=== PATIENT | male | born 1955 | race Caucasian/White ===

== ENCOUNTER → 2019-07-19 10:28 | Outpatient (BNVA) | payer MEDICARE, SELFPAY | PROVIDERS: Family Provider Nurse Practitioner; PCP Nurse Practitioner; Visit Provider Urology | DX: N13.8 Other obstructive and reflux uropathy (principal); N40.1 Benign prostatic hyperplasia with lower urinary tract symptoms; R97.20 Elevated prostate specific antigen [PSA]; N48.6 Induration penis plastica; N52.9 Male erectile dysfunction, unspecified | CPT/HCPCS: 81001; 84153 ==

== ENCOUNTER → 2019-11-21 12:06 | Outpatient (BNVA) | payer MEDICARE, SELFPAY | PROVIDERS: Family Provider Nurse Practitioner; PCP Nurse Practitioner; Visit Provider Nurse Practitioner Family | DX: U07.1 COVID-19 (principal) | CPT/HCPCS: 87635 ==

== ENCOUNTER → 2020-01-24 10:13 | Outpatient (BNVA) | payer MEDICARE, SELFPAY | PROVIDERS: Family Provider Nurse Practitioner; PCP Nurse Practitioner; Visit Provider Urology | DX: R97.20 Elevated prostate specific antigen [PSA] (principal); N13.8 Other obstructive and reflux uropathy; N40.1 Benign prostatic hyperplasia with lower urinary tract symptoms; N52.9 Male erectile dysfunction, unspecified | CPT/HCPCS: 81003; 84153 ==

== ENCOUNTER → 2020-07-31 14:00 | Outpatient (BNVA) | payer MEDICARE, SELFPAY | PROVIDERS: Family Provider Nurse Practitioner; PCP Nurse Practitioner; Visit Provider Urology | DX: R97.20 Elevated prostate specific antigen [PSA] (principal); N40.1 Benign prostatic hyperplasia with lower urinary tract symptoms; N13.8 Other obstructive and reflux uropathy | CPT/HCPCS: 81003; G0103 ==

== ENCOUNTER → 2021-01-29 09:50 | Outpatient (BNVA) | payer MEDICARE, SELFPAY | PROVIDERS: Family Provider Nurse Practitioner; PCP Nurse Practitioner; Visit Provider Nurse Practitioner Family | DX: R97.20 Elevated prostate specific antigen [PSA] (principal); N13.8 Other obstructive and reflux uropathy; N40.1 Benign prostatic hyperplasia with lower urinary tract symptoms | CPT/HCPCS: 81003; 84153 ==

== ENCOUNTER 2021-08-15 12:52 | Outpatient (CLI) | payer MEDICARE, SELFPAY | END 2021-08-15 12:53 | disposition home or self-care (01) | LOC: LAB 12:54 | PROVIDERS: PCP Nurse Practitioner; Visit Provider Urology | DX: R97.20 Elevated prostate specific antigen [PSA] (principal); Z80.42 Family history of malignant neoplasm of prostate; N40.1 Benign prostatic hyperplasia with lower urinary tract symptoms; N13.8 Other obstructive and reflux uropathy | CPT/HCPCS: 51798; 81003; 84153; 99213 ==

== ENCOUNTER → 2022-02-14 09:47 | Outpatient (BNVA) | payer MEDICARE, SELFPAY | PROVIDERS: PCP Nurse Practitioner; Visit Provider Urology | DX: R97.20 Elevated prostate specific antigen [PSA] (principal) | CPT/HCPCS: 84153 ==

== ENCOUNTER → 2022-02-27 09:28 | Outpatient (BNVA) | payer MEDICARE, SELFPAY | PROVIDERS: PCP Nurse Practitioner; Visit Provider Urology | DX: N13.8 Other obstructive and reflux uropathy (principal); N40.1 Benign prostatic hyperplasia with lower urinary tract symptoms; R97.20 Elevated prostate specific antigen [PSA]; N52.9 Male erectile dysfunction, unspecified; N48.6 Induration penis plastica | CPT/HCPCS: 51798; 81003; 99213 ==

== ENCOUNTER 2022-07-01 10:16 | Outpatient (CLI) | payer MEDICARE, SELFPAY ==
--- NOTE | 2022-07-01 10:30 | CT_ITS ---
WS: [id number] CT NECK TECHNIQUE: Contrast-enhanced CT of the neck with coronal and sagittal reformatted images. CLINICAL INFORMATION: R22.1 - Localized swelling, mass and lump, neck COMPARISON: None. DLP: 150.[address] scans at [facility] use at least one of these dose optimization techniques: automated e xposure control; mA and/or kV adjustment per patient size (includes targeted exams where dose is matc hed to clinical indication); or iterative reconstruction. FINDINGS: Some images degraded by motion. Parotid glands and submandibular glands are normal. . Normal parapharyngeal fat. Tiny LEFT thyroid n odule. Thyroid gland is otherwise normal. Lung apices are well aerated. Mastoid air cells well aerate d. Retention cysts or polyps LEFT maxillary sinus. Polypoid mucosal thickening in the paranasal sinus es. Masslike increased soft tissue mass involving the RIGHT palatine tonsil suspicious for neoplasm. Matt on degrades evaluation of this area. Suspicious area measures approximately 2.1 x 1.3 x 3.1 CM. Massl marixa RIGHT cervical lymphadenopathy with a suspicious heterogeneous enhancing enlarged RIGHT level 2 c ervical lymph node with central necrosis. This measures approximately 2.6 x 1.5 CM. Additional enhanc ing RIGHT cervical chain lymph nodes RIGHT level 3 measuring 10 to 11 mm. No definite visualized LEFT cervical chain pathological lymphadenopathy. Advanced spondylitic changes cervical spine. Disc osteophyte complexes at C5-C6 and C6-C7 moderate central canal stenosis C5-C6 e ccentric to the LEFT and moderate central canal stenosis C6-C7. CT/CT neck w con* [id number] IMPRESSION: 1. Masslike enhancement of the RIGHT palatine tonsil suspicious for tonsillar neoplasm. Recommend further evaluation with direct visualization. 2. Masslike RIGHT cervical lymphadenopathy highly suspicious for neoplasm/meta static disease measuring 2.6 x 1.5 x 3.1 cm in the area of palpable concern. Re commend PET/CT for further staging. 3. Additional smaller enhancing RIGHT cervical chain lymph nodes involving the RIGHT level 2, 3, and posterior triangle measuring up to 10 to 11 mm. 4. No visualized LEFT cervical lymphadenopathy. 5. Polypoid mucosal thickening in the peroneal sinuses. 6. Advanced spondylitic changes cervical spine.
[2022-07-01] MEDS: iohexol 350 mg/mL 500 mL Btl (per mL) IV ×2 (10:59→11:15)
--- NOTE | 2022-07-01 11:00 | CT_ITS ---
WS: [id number] CT CHEST TECHNIQUE: Contrast enhanced CT of the chest with coronal and sagittal reformatted images. CLINICAL INFORMATION: R91.8 - Other nonspecific abnormal finding of lung field COMPARISON: None. DLP: 183.[address] scans at [facility] use at least one of these dose optimization techniques: automated e xposure control; mA and/or kV adjustment per patient size (includes targeted exams where dose is matc hed to clinical indication); or iterative reconstruction. FINDINGS: Moderate chronic emphysematous changes. No acute pulmonary infiltrates. Slight bibasilar atelectasis. No focal pneumonia or pleural fluid. No suspicious pulmonary parenchymal opacities. No parenchymal o pacities to correspond to the radiograph findings. This is likely resolved in the interim. Normal caliber thoracic aorta. Normal descending thoracic aorta. Thyroid gland appears normal. No axi llary lymphadenopathy. Hypertrophic changes thoracic spine. Moderate spondylitic changes thoracic spine. No mediastinal or h ilar lymphadenopathy. No axillary lymphadenopathy. Adrenal glands are normal. Diffuse fatty infiltrat ion liver. Tiny esophageal hiatal hernia. Suggestion of cholelithiasis or sludge in gallbladder parti ally visualized. CT/CT chest w con* [id number] IMPRESSION: 1. No suspicious pulmonary parenchymal abnormalities today. Moderate chronic e mphysematous changes. 2. Slight bibasilar atelectasis. 3. No mediastinal or hilar lymphadenopathy. 4. Suggestion of cholelithiasis or sludge in the gallbladder. This can be foll owed up with ultrasound.
== END 2022-07-01 10:17 | disposition home or self-care (01) ==
PROVIDERS: PCP Nurse Practitioner; Visit Provider Nurse Practitioner Family
DX: R22.1 Localized swelling, mass and lump, neck (principal); R59.1 Generalized enlarged lymph nodes; R05.9 Cough, unspecified; J98.11 Atelectasis; R91.8 Other nonspecific abnormal finding of lung field
CPT/HCPCS: 70491; 71046; 71260; 80053; 80061; 84443; 85025; Q9967

== ENCOUNTER → 2022-07-04 10:37 | Outpatient (BNVA) | payer MEDICARE, SELFPAY | PROVIDERS: PCP Nurse Practitioner; Visit Provider Otolaryngology | DX: D49.0 Neoplasm of unspecified behavior of digestive system (principal); R22.1 Localized swelling, mass and lump, neck | CPT/HCPCS: 99205 ==

== ENCOUNTER 2022-07-10 09:34 | Day surgery (SDC) | payer MEDICARE, SELFPAY ==
[2022-07-09 10:24] VITALS: BMI 23.5
[2022-07-10] VITALS (16 sets, daily range): BP systolic 107–132; BP diastolic 65–82; PULSE 75–97; RESP 16–26; TEMP 36.4–36.7; O2SAT 92–98
--- NOTE | 2022-07-10 10:12 | W.PM.OPSUD ---
Surgery/Procedure H&P Update DATE OF PROCEDURE: July 10, 2022 DATE H&P PERFORMED: 07/04/22 H&P UPDATE INFORMATION: I have reviewed H&P completed within last 30 days, I have examined patient prior to procedure and No changes to prior documentation CHANGES TO PREVIOUS DOCUMENTATION: No changes PREOP DIAGNOSIS: Right tonsillar lesion/right neck mass PRIMARY INDICATION FOR PROCEDURE: Right tonsillar lesion and right neck mass PLANNED PROCEDURE: Operation Date: 07/10/22 11:15 Proposed Procedures p [id number] - bilateral tonsillectomy and excision of right sided neck mass R22.1, D49.0(Bilateral) - Paras Bentley MD s Excision Neck Mass/Lesion Removal Neck Mass/Lesion(Right) - Paras Bentley MD
--- NOTE | 2022-07-10 10:22 | ANES.PREANE2 ---
Pre-Anesthetic Assessment Height/Weight: Height 1.7 m Weight 68.039 kg O2 Del Method Room Air 07/10/22 10:12 Preop Diagnosis: Right tonsillar lesion/right neck mass Operation Date: 07/10/22 11:15 Proposed Procedures p [id number] - bilateral tonsillectomy and excision of right sided neck mass R22.1, D49.0(Bilateral) - Paras Bentley MD s Excision Neck Mass/Lesion Removal Neck Mass/Lesion(Right) - Paras Bentley MD Familial anesthetic complications: None Last intake: > 8hrs Social Tobacco and No alcohol Exam alert, oriented x 3, clear to auscultation bilaterally and regular rate & rhythm Airway Mallampati: Class III Dentition: other (multiple missing teeth) Comments: Comments: CT neck IIMPRESSION: ? 1.? Masslike enhancement of the RIGHT palatine tonsil suspicious for tonsillar neoplasm. Recommend further evaluation with direct visualization. 2.? Masslike RIGHT cervical lymphadenopathy highly suspicious for neoplasm/metastatic disease measuring 2.6 x 1.5 x 3.1 cm in the area of palpable concern. Recommend PET/CT for further staging. 3.? Additional smaller enhancing RIGHT cervical chain lymph nodes involving the RIGHT level 2, 3, and posterior triangle measuring up to 10 to 11 mm. 4.? No visualized LEFT cervical lymphadenopathy. 5.? Polypoid mucosal thickening in the peroneal sinuses. 6.? Advanced spondylitic changes cervical spine. ? Anesthetic Plan ASA status: 2 Anesthesia: General Risk of > 500 ml blood loss (7ml/kg in children): No Medications/Allergies Home Medications Medication Instructions Recorded Confirmed Last Taken Type cholecalciferol (vitamin D3) 50 50 mcg PO DAILY 07/19/19 07/09/22 07/08/22 History mcg (2,000 unit) capsule coenzyme [id number] E 100 mg-100 1 cap PO DAILY 07/19/19 07/09/22 07/08/22 History unit capsule tramadol 50 mg tablet 50 mg PO DAILY PRN Pain 01/29/21 07/09/22 Unknown History tamsulosin 0.4 mg capsule 0.8 mg PO DAILY #180 caps 02/27/22 07/09/22 07/09/22 18:00 Rx albuterol sulfate 90 mcg/actuation 2 puff inhalation QID PRN 06/17/22 07/09/22 07/09/22 22:30 Rx aerosol inhaler (Ventolin HFA) shortness of breath or wheezing #6.7 grams promethazine-DM 6.25 mg-15 mg/5 mL 5 - 10 ml PO Q6H PRN cough #240 mL 06/17/22 07/09/22 Unknown Rx oral syrup finasteride 5 mg tablet 5 mg PO DAILY 07/09/22 07/09/22 07/09/22 18:00 History Allergies Allergy/AdvReac Type Severity Reaction Status Date / Time codeine Allergy UNKNOWN Verified 07/04/22 11:05 hydrocodone Allergy UNKNOWN Verified 07/04/22 11:05 metronidazole [From Flagyl] Allergy UNKNOWN Verified 07/04/22 11:05 naproxen [From Naprosyn] Allergy UNKNOWN Verified 07/04/22 11:05 PFSH Anesthesia Medical History BPH with obstruction/lower urinary tract symptoms Degenerative spinal arthritis Diverticulosis Elevated PSA Erectile dysfunction History of basal cell carcinoma of skin Mixed hyperlipidemia Peyronie's disease Vitamin D deficiency Surgical History H/O radical excision of skin lesion FACE Hx of circumcision Family History Father , AT AGE 77 Cancer LUNG Mother CAD (coronary artery disease) Social History Smoking and tobacco status: current every day smoker Alcohol intake: never Substance/Drug Use: unknown Marital status: Current occupational status: retired Data Anesthesia Cardiac Studies: No Data to Display
[2022-07-10] MEDS: sodium chloride 0.9% 1,000 ML 30 ML IV (10:31)
[2022-07-10] MEDS: ceFAZolin 2,000 MG in sodium chloride 0.9% (plus) 50 ML 100 MG IV (12:09)
--- NOTE | 2022-07-10 13:32 | PM.OP ---
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 Post-op findings: Tonsil right side with ulceration and rockhard mass in lower two thirds. Multiple nodes right upper jugulodigastric region removed down to a clean great vessel carotid artery and jugular vein. No residual nodes visible that were suspicious. Procedure done: Right cervical lymphadenectomy and right tonsillectomy Implants: Quarter inch Miah drain to right neck Specimens removed/disposition: Right tonsil and multiple nodes from right neck Pathology: Same Surgeon: Paras Bentley MD Anesthesia: General and Local Estimated blood loss: 25 mL Complications: No complications encountered Findings: Patient has had right neck masses identified on CT scan along with a right tonsillar mass. Expected that these will proved to be squamous cell carcinoma originating in the right tonsil and spreading to the right neck lymph nodes. Patient will have his right tonsil resected for biopsy purposes and cervical lymphadenectomy performed. The procedure its risks and complications were explained in detail in the office setting. The risks included bleeding infection numbness scarring swelling bruising recurrence need for additional treatment as this is a diagnostic procedure. Further work-up will be necessary if malignancy is identified and PET scan and oncology referral will follow. Anesthetic risks were also discussed. Nerves in the area were discussed as well as far as being at risk. These were the marginal mandibular branch of the facial nerve and the hypoglossal nerve the vagus nerve and the spinal accessory nerve. With all of these things understood informed consent was granted and witnessed. Brief History: 67-year-old male patient with a couple of month history of right neck mass that is in enlarging in size and becoming tender. Patient found on CT scan to have neck masses on the right side and a right tonsillar mass. This was confirmed on office examination. Patient being brought to the operating room at this time to undergo excision of the right neck masses and tonsillectomy. Procedure: Description of procedure: The patient was placed on the operating table in the supine position. Adequate general endotracheal tube anesthesia was obtained. The patient was repositioned into a semirecumbent position with the right neck exposed. The area was prepped and marked the site was noted. 1.7 mL of 2% Xylocaine with 1-100,000 epinephrine was used to infiltrate the skin. The patient was then prepped and draped in usual fashion. A timeout was accomplished identifying the patient date of plan procedure allergies fire risk and medications given. With all in agreement the procedure continued. The patient was given Ancef IV for prophylaxis. The neck incision was created with the cut mode of the Bovie with a needle tip. It was carried down to the subcutaneous fat layer after which the coagulation mode of the Bovie was used to dissected further down down to the platysma muscle. Then dissection was carried out elevating and cutting appropriately. This was carried down to the sternocleidomastoid muscle. The fascia was incised over the anterior aspect of the sternocleidomastoid muscle and then elevated over its anterior edge down to the neck mass in question which was small for the lobulated lymph node and multiple nodes present. All that was visible in all that appeared abnormal were resected. This was forwarded to the pathologist for frozen section diagnosis. While that was pending hemostasis was obtained with bipolar cautery. Rinsing with sterile water was accomplished several times. A Miah drain quarter-inch was placed to the depths of the surgical site. This was sutured to the neck with a 4-0 chromic suture. Then the platysma level layer was closed with interrupted 4-0 chromic. The subcutaneous layer was then closed with interrupted 4-0 chromic suture. Then the skin was closed with skin marie. The neck was cleansed and a sterile lap pad was placed over it. Frozen section returned as metastatic squamous cell carcinoma. The table was then rotated 90 degrees. His head was dropped 15 degrees to the horizontal. With the eyes still taped shut and head drape was applied. A Samaria Ashwin mouthgag was inserted over the endotracheal tube and tongue ensuring that the upper incisors were in the guard. This was then opened and suspended from a rolled blanket on his chest. A red rubber catheter was inserted in the left nares and used to elevate the palate. Left tonsil was found to be normal and almost atrophic. Nasopharynx was clear. The right tonsil was palpated in the superior aspect. Normal but the lower two thirds was rockhard and obviously had the ulcerative component extending to a hard mass. The tonsil was removed with the foot pedal Bovie using cut and coagulation modes to dissected tonsil from its bed from a superior to inferior direction. Hemostasis was obtained with the cautery. Several larger vessels were clamped and cauterized with the clamp in place. After removal of the mass this was also forwarded to pathology but for permanent section only. The tonsil bed was checked for any obvious or gross tumor. None was seen. Bleeding was controlled at all sites. Area was irrigated with sterile water. The red rubber catheter was released. No bleeding was seen. The mouthgag was released and the tongue and neck were massaged. No bleeding was seen when it was reopened. The area was suctioned clean. The hypopharynx was suctioned. The mouthgag was released and removed. The patient's head was returned to the upright position. Head drape and tape were removed. The sterile lap that was still covering the right neck incision was removed. Neosporin ointment was applied over the incision. Fluffs were placed and then 2 Kerlix rolls were wrapped around the neck with proper tightness. That to apply a pressure dressing. At this point the patient was returned to anesthesia for wake-up and extubation. He tolerated the procedure well had an estimated blood loss of 25 mL and arrived in recovery in stable condition.
[2022-07-10] MEDS: HYDROmorphone 1 mg/mL INJ 1 mL 0.5 MG IVP (14:20)
--- NOTE | 2022-07-10 14:34 | SUR.OPER ---
1.7ml of 2% lidocaine with epi injected into the right neck.
--- NOTE | 2022-07-10 16:52 | SUR.PHASEII ---
16:40 PT ABLE TO SWALLOW SECRETIONS. NECK DRESSING CLEAN AND INTACT.
--- NOTE | 2022-07-10 17:07 | ANE.PACU2 ---
Inpatient post-anesthesia follow up: Airway intact: Yes Vital signs: Temperature 97.9 F Pulse Rate 81 Respiratory Rate 16 Blood Pressure 108/69 Pulse Oximetry 92 Oxygen Delivery Me thod Room Air Oxygen Flow Rate 2 Fraction of Inspir ed Oxygen Hydration adequate: Yes Nausea and vomiting: No Pain level: 1 Mental status: Baseline
[2022-07-14 11:14] LABS: Lymphoma Profile (BBPL) See Report
== END 2022-07-10 16:40 | disposition home or self-care (01) ==
PROVIDERS: PCP Nurse Practitioner; Visit Provider Otolaryngology
PROC: (CPT 38510; 2022-07-10 11:05)
PROC: (CPT 38510; 2022-07-10 11:05)
DX: C09.9 Malignant neoplasm of tonsil, unspecified (principal); C77.0 Secondary and unspecified malignant neoplasm of lymph nodes of head, face and neck; E78.2 Mixed hyperlipidemia; F17.210 Nicotine dependence, cigarettes, uncomplicated
CPT/HCPCS: 38510; 42826; 88184; 88185; 88304; 88307; 88331; 88342; J0690; J1100; J1170; J2250; J2370; J2405; J2710; J3010; J3490; J7030

== ENCOUNTER 2022-07-12 10:34 | Observation (INO) | payer MEDICARE, SELFPAY ==
[2022-07-12] VITALS (19 sets, daily range): BP systolic 117–153; BP diastolic 66–97; PULSE 60–100; RESP 14–22; TEMP 36.4–36.9; O2SAT 89–93; BMI 21.2
--- NOTE | 2022-07-12 11:23 | XRR_ITS ---
PROCEDURE INFORMATION: Exam: XR Chest Exam date and time: 07/12/2022 11:34 AM Age: 67 years old Clinical indication: Shortness of breath; Prior surgery; Surgery date: Post-operative (0-2 days); Surgery type: Cervical 2 days ago; Additional info: SOB TECHNIQUE: Imaging protocol: Radiologic exam of the chest. Views: 1 view. COMPARISON: CT chest w con* [id number] 07/01/2022 10:59 AM FINDINGS: Lungs: Mild left basilar airspace opacity. Pleural spaces: Unremarkable. No pleural effusion. No pneumothorax. Heart/Mediastinum: Unremarkable. No cardiomegaly. Bones/joints: Unremarkable. XR/XR chest 1V portable [id number] IMPRESSION: Mild left basilar airspace opacity may reflect atelectasis versus aspiration or pneumonia.
--- NOTE | 2022-07-12 11:37 | W.ED.SOB ---
HPI - SOB/Dyspnea General: Chief Complaint: Shortness of Breath/Dyspnea Stated Complaint: SOB post surgery 07/10 Time Seen by Provider: 07/12/22 11:02 History of Present Illness: HPI Narrative: 67-year-old male presents emerged department his present chief complaint shortness of breath or trouble swallowing sore throat. Patient is status post right-sided tonsillectomy lymph node excision the rest of the neck for concerning findings for underlying cancer he reports this was done on . He reports uneventful postoperative. He reports trouble swallowing his medication including his antibiotics and she developed some mild shortness of breath after taking it patient does not report any coughing any blood he reports significant sore throat reports no difficulty breathing patient also endorses significant right-sided lateral neck pain. Patient does not recall any recent fevers or chills reporting no other associated symptoms. Associated symptoms: Deny abdominal pain, chest pain, extremity pain, fever(s), nausea, palpitations or vomiting Review of Systems General: Reports: 10 or more systems reviewed and unremarkable except in HPI and below Const: Denies: fever(s), chills, fatigue or malaise Eyes: Denies: change in vision or blurry vision ENMT: Reports: throat pain, odynophagia, hoarseness and dry mouth Card: Denies: chest pain or palpitations Resp: Reports: dyspnea and non-productive cough; Denies: wheezing GI: Denies: abdominal pain, nausea or vomiting : Denies: flank pain Musc: Denies: extremity pain or extremity swelling Skin/Breast: Denies: rash or pruritus Neuro: Denies: headache(s) Psych: Denies: anxiety or depression Jeremy/Lymph: Denies: easy bleeding All/Imm: Denies: urticaria, throat swelling or facial swelling PFSH ED PFSH: Medical History BPH with obstruction/lower urinary tract symptoms Degenerative spinal arthritis Diverticulosis Elevated PSA Erectile dysfunction History of basal cell carcinoma of skin Mixed hyperlipidemia Peyronie's disease Vitamin D deficiency Surgical History H/O radical excision of skin lesion FACE Hx of circumcision Family History Father , AT AGE 77 Cancer LUNG Mother CAD (coronary artery disease) Social History Smoking and tobacco status: current every day smoker Alcohol intake: never Substance/Drug Use: unknown Marital status: Current occupational status: retired Physical Exam Narrative: EXAM NARRATIVE: Patient appears nontoxic afebrile appears in no acute respiratory distress Const: COMMON NORMALS: no acute distress, patient oriented x3 and healthy appearing HENMT: OTHER: Eschar noted to the right tonsil surgical wrap appreciated to the neck with no obvious hematoma. No dehiscence of the overlying marie apparent equal breath sounds appreciate bilaterally no obvious wheezing crackles rales or rhonchi noted no stridor apparent Eye: COMMON NORMALS: Equal, round and reactive pupils present and EOMs intact bilaterally PUPIL: Yes Equal, round and reactive pupils present Lymph: LYMPHATIC: no lymphadenopathy noted Chest: COMMONS NORMALS: normal inspection of the chest and normal palpation of entire chest wall Cardio: COMMON NORMALS: regular rate and regular rhythm RATE: regular rate RHYTHM: regular rhythm GI: COMMON NORMALS: Normal to inspection, nondistended, normoactive bowel sounds present, Soft to palpation and non-tender INSPECTION: Yes normal to inspection PALPATION: Yes Soft to palpation : COMMON NORMALS: Yes no CVA tenderness BLADDER/KIDNEY EXAM: Yes no CVA tenderness Back/Pelvis: COMMON NORMALS: no CVA tenderness Extremity: COMMON NORMALS: normal to inspection and full ROM Neuro: COMMON NORMALS: patient oriented x3, CN's II-XII intact bilaterally, moves all extremities and no focal motor deficits Psych: COMMON NORMALS: mental status grossly normal, Normal thought process present, cooperative and normal affect THOUGHT PROCESS: Normal thought process present Skin: COMMON NORMALS: no rashes or lesions noted GENERAL SKIN EXAM: no rashes or lesions noted Course Vital Signs: Vital signs: Vital Signs Temperature 97.6 F 07/12/22 10:41 Pulse Rate 85 07/12/22 10:41 Respiratory Rate 18 07/12/22 13:21 Blood Pressure 117/93 07/12/22 13:21 Pulse Oximetry 91 07/12/22 13:21 Oxygen Delivery Me thod Room Air 07/12/22 13:21 MDM - SOB/Dyspnea Medical Decision Making Due to the patient's symptoms and condition Concern dehydration is prominent patient will also be provided a dose of IV Decadron on exam the patient does have a eschar is nonbleeding with mild tonsillomegaly on the right no obvious stridor apparent airway compromise appreciated underlying concerns of dehydration is prominent will be obtaining a chest x-ray CT imaging of the neck with IV contrast and I will continue to follow. Patient was found to be considerable amount of supraglottic edema airway compression as noted by radiology discussed patient's case with Dr. Bentley patient's ENT recommends admission to Dr. Sebastian hospitalist to the ICU patient be kept on antibiotics and steroids the patient is currently guarding his airway. No obvious acute airway compromise. Lab Data 07/12/22 12:21 07/12/22 12:21 Labs/Radiology: Radiology Impressions Chest X-Ray 07/12/22 11:23 IMPRESSION: Mild left basilar airspace opacity may reflect atelectasis versus aspiration or pneumonia. Neck CT 07/12/22 12:59 IMPRESSION: Combination of supraglottic edema and perivertebral edema contributing to supraglottic airway narrowing to 7 x 3 mm. No abnormal drainable fluid collection. THIS REPORT CONTAINS FINDINGS THAT MAY BE CRITICAL TO PATIENT CARE. The findings were verbally communicated via telephone conference with GAUDENCIO GARCIA at 1:40 PM CDT on 07/12/2022. The findings were acknowledged and understood. Chest CT 07/12/22 13:02 IMPRESSION: 1. Mild mediastinal lymphadenopathy. 2. Mild emphysema. 3. Cholelithiasis without definite gallbladder wall thickening. 4. Mild splenomegaly. 5. Please see dedicated CT of the neck for associated findings. COMMENTS: In the absence of a history or active diagnosis of lung cancer, it is recommended that this patient with emphysema be evaluated for enrollment in a low dose CT lung cancer screening program. Laboratory Results WBC 13.1 10^3/uL (4.0-10.0) H 07/12/22 12:21 RBC 4.71 10^6/uL (4.1-5.3) 07/12/22 12:21 Hgb 13.6 g/dL (11.7-16.6) 07/12/22 12:21 Hct 42.5 % (42.0-52.0) 07/12/22 12:21 MCV 90.2 fl (80-94) 07/12/22 12:21 MCH 28.9 pg (28.0-34.0) 07/12/22 12:21 MCHC 32.0 g/dL (30.0-36.0) 07/12/22 12:21 RDW 13.8 % (12.1-15.1) 07/12/22 12:21 Plt Count 242 10^3/cmm (130-400) 07/12/22 12:21 MPV 9.5 fL (7.4-10.4) 07/12/22 12:21 Neut % (Auto) 71.4 % 07/12/22 12:21 Lymph % (Auto) 17.1 % 07/12/22 12:21 Piute % (Auto) 8.8 % 07/12/22 12:21 Eos % (Auto) 1.9 % 07/12/22 12:21 Baso % (Auto) 0.5 % 07/12/22 12:21 Neut # (Auto) 9.37 10^3/uL (1.8-7.7) H 07/12/22 12:21 Lymph # (Auto) 2.3 10^3/uL (0.8-4.8) 07/12/22 12:21 Piute # (Auto) 1.2 10^3/uL (0.2-0.9) H 07/12/22 12:21 Eos # (Auto) 0.3 10^3/uL (0.0-0.8) 07/12/22 12:21 Baso # (Auto) 0.1 10^3/uL (0.0-0.1) 07/12/22 12:21 Nucleated RBC % (auto) 0 % 07/12/22 12:21 Nucleated RBCs # 0.0 /100WBC 07/12/22 12:21 Sodium 137 mmol/L (136-145) 07/12/22 12:21 Potassium 3.8 mmol/L (3.5-5.1) 07/12/22 12:21 Chloride 101 mmol/L (98-107) 07/12/22 12:21 Carbon Dioxide 23 mmol/L (22-29) 07/12/22 12:21 Anion Gap 16.8 (5-19) 07/12/22 12:21 BUN 17 mg/dL (8-23) 07/12/22 12:21 Creatinine 0.6 mg/dL (0.7-1.2) L 07/12/22 12:21 GFR Calculation 134.0 mL/min (90-130) H 07/12/22 12:21 Glucose 94 mg/dL (65-115) 07/12/22 12:21 Calculated Osmolality 285 mOsm/kg (285-295) 07/12/22 12:21 Lactic Acid 1.1 mmol/L (0.5-2.2) 07/12/22 12:21 Calcium 8.6 mg/dL (8.5-10.5) 07/12/22 12:21 Total Bilirubin 1.9 mg/dL (0.15-1.2) H 07/12/22 12:21 AST 17 U/L (0-40) 07/12/22 12:21 ALT 11 U/L (0-41) 07/12/22 12:21 Alkaline Phosphatase 87 U/L (40-130) 07/12/22 12:21 Troponin T Baseline 10 ng/L (0-15) 07/12/22 12:21 Troponin T 120 Minute 11.24 ng/L (0-15) 07/12/22 14:26 C-Reactive Protein 46.1 mg/L (0.0-4.9) H 07/12/22 12:21 NT-Pro-B Natriuret Pep 284 pg/mL (0-125) H 07/12/22 12:21 Total Protein 7.0 g/dL (6.6-8.7) 07/12/22 12:21 Albumin 3.8 g/dL (3.5-5.2) 07/12/22 12:21 Globulin 3.2 g/dL (1.3-4.6) 07/12/22 12:21 Discharge Plan Discharge Admit Provider: Candido Sebastian Clinical Impression: Supraglottic edema Condition: Stable Coding Level of Care Code ED Plasma Table Operator for Zaheer Ha
[2022-07-12] MEDS: benzonatate 100 mg Capsule 200 MG PO (12:10)
[2022-07-12] MEDS: sodium chloride 0.9% 1,000 ML 999 ML IV (12:17)
--- NOTE | 2022-07-12 12:20 | ECG_ITS ---
[facility] Test Date: 2022-07-12 Pat Name: Jin Bateman Department: Room: Gender: Male Dining Room Supervisor: : 1955 Requested By: Dago Garcia Order Number: [id number] Carley MD: Gopi Mera M.D. Measurements Intervals Collins Rate: 75 P: 80 WY: 188 QRS: 62 QRSD: 86 T: 61 QT: 346 QTc: 388 Interpretive Statements SINUS RHYTHM WITH MARKED SINUS ARRHYTHMIA No previous ECG available for comparison Electronically Signed On 07-13-2022 10:17:55 CDT by Gopi Mera M.D. [id number]
[2022-07-12 12:36] LABS: Basophils # 0.1 10^3/uL (0.0-0.1); Basophils % 0.5 %; Eosinophils # 0.3 10^3/uL (0.0-0.8); Eosinophils % 1.9 %; Hematocrit 42.5 % (42.0-52.0); Hemoglobin 13.6 g/dL (11.7-16.6); Lymphocytes # 2.3 10^3/uL (0.8-4.8); Lymphocytes % 17.1 %; Mean Corpuscular Hemoglobin 28.9 pg (28.0-34.0); Mean Corpuscular Volume 90.2 fl (80-94); Mean Platelet Volume 9.5 fL (7.4-10.4); Monocytes # 1.2 10^3/uL (0.2-0.9); Monocytes % 8.8 %; Neutrophils # 9.37 10^3/uL (1.8-7.7); Neutrophils % 71.4 %; Nucleated Red Blood Cells % 0 %; Platelet Count 242 10^3/cmm (130-400); Red Blood Count 4.71 10^6/uL (4.1-5.3); Red Cell Distribution Width 13.8 % (12.1-15.1); White Blood Count 13.1 10^3/uL (4.0-10.0)
[2022-07-12 12:56] LABS: Lactic Sepsis W/Reflex 1.1 mmol/L (0.5-2.2)
[2022-07-12 12:57] LABS: Troponin(5th) Baseline 10 ng/L (0-15)
--- NOTE | 2022-07-12 12:59 | CTR_ITS ---
PROCEDURE INFORMATION: Exam: CT Neck With Contrast Exam date and time: 07/12/2022 1:15 PM Age: 67 years old Clinical indication: SOB; right tonsillar cancer. Right tonsillectomy and right neck lymph node dissection 2 days ago. TECHNIQUE: Imaging protocol: Computed tomography of the neck with contrast. Radiation optimization: All CT scans at this facility use at least one of these dose optimization techniques: automated exposure control; mA and/or kV adjustment per patient size (includes targeted exams where dose is matched to clinical indication); or iterative reconstruction. Contrast material: OMNI 350; Contrast volume: 40 ml; Contrast route: INTRAVENOUS (IV); REPORTING DATA: Count of CT and Cardiac NM exams in prior 12 months: This patient has received 2 known CTs and 0 known cardiac nuclear medicine studies in the 12 months prior to the current study. COMPARISON: CT neck w con* [id number] 07/01/2022 10:54 AM RADIATION DOSE METRICS: Total DLP (mGy-cm): 211.71 FINDINGS: Tubes, catheters and devices: Postsurgical drain placed via the incision terminates adjacent to the anterior wall of the internal jugular vein at C2-C3 level. Pharynx: Right tonsillar tumor has been removed. There is small amount of fluid and air within the resection cavity of right tonsil. There is persistent 0.8 cm hypodensity in the normal size left tonsil. Larynx: There is very slight edema of the epiglottis measuring 5 mm in thickness versus 3 mm on the preoperative exam. There is significant supraglottic edema along the right lateral and posterior wall and within the right aryepiglottic fold contributing to narrowing of the airway which is now measuring 7 mm in wibr-sf-tagg diameter and 3 mm in anterior-posterior diameter (series 4, image [id number]). Collapse of bilateral piriform sinuses. Unremarkable local cords. Prevertebral and retropharyngeal spaces: Diffuse mild soft tissue thickening in the retropharyngeal area between C2 and C5 with no well-defined fluid collection. Anterior-posterior thickness of the prevertebral soft tissues at C3-C4 level increased from 5 mm to 11 mm (series 8, image 47). Salivary glands: Normal. Glands are normal in size. Thyroid: Normal in size. No nodules. Lymph nodes: No lymphadenopathy. Trachea: Visualized trachea is unremarkable. Lungs: Unremarkable as visualized. Bones/joints: There are stable degenerative changes in the cervical spine including large marginal disc osteophyte complex at C5-C6 causing moderate spinal stenosis and possible pressure on the left aspect of the spinal cord and smaller marginal disc osteophyte complex at C6-C7 causing mild spinal stenosis. Soft tissues: There is unremarkable incision in the right neck with no abnormal fluid collection. There is mild edema in the right neck anteriorly to the sternocleidomastoid muscle and the right common carotid artery suggestive of postsurgical edema. There is edema and small amount of air in the right hand brim ironer space. CT/CT neck w con* [id number] IMPRESSION: Combination of supraglottic edema and perivertebral edema contributing to supraglottic airway narrowing to 7 x 3 mm. No abnormal drainable fluid collection. THIS REPORT CONTAINS FINDINGS THAT MAY BE CRITICAL TO PATIENT CARE. The findings were verbally communicated via telephone conference with GAUDENCIO REYNAGA at 1:40 PM CDT on 07/12/2022. The findings were acknowledged and understood.
--- NOTE | 2022-07-12 13:02 | CTR_ITS ---
PROCEDURE INFORMATION: Exam: CT Chest With Contrast; Diagnostic Exam date and time: 07/12/2022 1:11 PM Age: 67 years old Clinical indication: Shortness of breath. Tonsillar cancer removed 2 days ago. TECHNIQUE: Imaging protocol: Diagnostic computed tomography of the chest with contrast. Radiation optimization: All CT scans at this facility use at least one of these dose optimization techniques: automated exposure control; mA and/or kV adjustment per patient size (includes targeted exams where dose is matched to clinical indication); or iterative reconstruction. Contrast material: OMNI 350; Contrast volume: 70 ml; Contrast route: INTRAVENOUS (IV); REPORTING DATA: Count of CT and Cardiac NM exams in prior 12 months: This patient has received 2 known CTs and 0 known cardiac nuclear medicine studies in the 12 months prior to the current study. COMPARISON: CT chest w con* [id number] 07/01/2022 10:59 AM RADIATION DOSE METRICS: Total DLP (mGy-cm): 306.74 FINDINGS: Lungs: Mild centrilobular emphysema. Subsegmental atelectasis and dependent atelectasis are noted. No pulmonary mass. Pleural spaces: No pleural effusion. No pneumothorax. Heart: No pericardial effusion. Lymph nodes: A precarinal lymph node measures 1.5 x 1.1 cm. A subcarinal lymph node measures 1.0 x 2.0 cm. Vasculature: No thoracic aortic aneurysm. No thoracic aortic dissection. Diaphragm: No hiatal hernia. Gallbladder and bile ducts: Cholelithiasis without definite gallbladder wall thickening. Spleen: The spleen is enlarged measuring 13.2 cm. Bones/joints: No acute fracture is seen. Soft tissues: Mild gynecomastia. CT/CT chest w con* [id number] IMPRESSION: 1. Mild mediastinal lymphadenopathy. 2. Mild emphysema. 3. Cholelithiasis without definite gallbladder wall thickening. 4. Mild splenomegaly. 5. Please see dedicated CT of the neck for associated findings. COMMENTS: In the absence of a history or active diagnosis of lung cancer, it is recommended that this patient with emphysema be evaluated for enrollment in a low dose CT lung cancer screening program.
[2022-07-12 13:06] LABS: Alanine Aminotransferase 11 U/L (0-41); Albumin Level 3.8 g/dL (3.5-5.2); Alkaline Phosphatase 87 U/L (40-130); Anion Gap 16.8 (5-19); Aspartate Amino Transferase 17 U/L (0-40); Blood Urea Nitrogen 17 mg/dL (8-23); C Reactive Protein 46.1 mg/L (0.0-4.9); Calcium 8.6 mg/dL (8.5-10.5); Carbon Dioxide 23 mmol/L (22-29); Chloride 101 mmol/L (98-107); Creatinine Clr Calc Pharmacy 83.0515; Globulin 3.2 g/dL (1.3-4.6); Glucose 94 mg/dL (65-115); NT Pro B Type Natriuretic Pept 284 pg/mL (0-125); Osmolality Calculated 285 mOsm/kg (285-295); Potassium 3.8 mmol/L (3.5-5.1); Sodium 137 mmol/L (136-145); Total Bilirubin 1.9 mg/dL (0.15-1.2)
[2022-07-12] MEDS: iohexol 350 mg/mL 500 mL Btl (per mL) IV (13:18)
[2022-07-12] MEDS: cefTRIAXone 1,000 MG in sodium chloride 0.9% (plus) 50 ML 100 MG IV (13:25)
[2022-07-12 15:20] LABS: Troponin 5 2HR 11.24 ng/L (0-15)
--- NOTE | 2022-07-12 16:15 | P.HP_ITS ---
Providers/Chief Complaint Admitting Physician: Candido Sebastian MD Primary Care Provider: Kath Pitt, SURGICAL TRAINING SPECIALIST-C Chief Complaint: SOB post surgery 07/10 History of Present Illness 67yo M with Hx of BPH DDD, GERD, and recent tonsillectomy LN excision presents for SOB and difficulties swallowing. DOS was 07/10/[address] Bentley. 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 R tonsils where resected for biopsy and cervical lymphadenectomy was also performed. per surgical note there where no complications noted nor difficulties with excision of tonsil and LN's. Pt was to have further workup via PET scan and oncology to follow; however pt developed pain, SOB and difficulty swallowing. Difficulties taking medications then developed mild SOB. Currently seen at bedside with bandages around neck. able to communicate, hoarse voice. no visible stridor, retractions or difficulty breathing. Pt states he has felt an increasing swelling in neck with difficulty swallowing pills. more SOB today than yesterday led him to ED. Denies hemoptysis, inability to breath, fevers, chills, MARC, vision changes. Does admit to possibly aspirating a couple days ago. CXR in ED concerning for atelectasis vs aspiration PNA. CT neck showed combination of supraglottic edema and perivertebral edema contributing to supraglottic ariway narrowing to 7x3mm w/o any signs of drainable fluid collection. Review of Systems ENMT: Reports: throat pain, enlarged tonsils, odynophagia, hoarseness and other (dysphagia ) Card: Denies: chest pain, palpitations or irregular heart rhythm Resp: Reports: dyspnea and productive cough; Denies: non-productive cough or wheezing GI: Denies: abdominal pain, nausea or vomiting Musc: Reports: neck pain Neuro: Denies: headache(s), numbness in extremities, weakness in extremities, dizziness, vertigo or confusion Psych: Denies: anxiety, depression or difficulty concentrating Medications/Allergies Home Medications Medication Instructions Recorded Confirmed Last Taken Type cholecalciferol (vitamin D3) 50 50 mcg PO DAILY 07/19/19 07/12/22 07/10/22 History mcg (2,000 unit) capsule coenzyme [id number] E 100 mg-100 1 cap PO DAILY 07/19/19 07/12/22 07/10/22 History unit capsule tamsulosin 0.4 mg capsule 0.8 mg PO DAILY #180 caps 02/27/22 07/12/22 07/10/22 Rx albuterol sulfate 90 mcg/actuation 2 puff inhalation QID PRN 06/17/22 07/12/22 07/09/22 22:30 Rx aerosol inhaler (Ventolin HFA) shortness of breath or wheezing #6.7 grams promethazine-DM 6.25 mg-15 mg/5 mL 5 - 10 ml PO Q6H PRN cough #240 mL 06/17/22 07/12/22 Unknown Rx oral syrup finasteride 5 mg tablet 5 mg PO DAILY 07/09/22 07/12/22 07/10/22 History cephalexin 500 mg capsule 500 mg PO TID 10 days #30 caps 07/10/22 07/12/22 07/10/22 Rx tramadol 50 mg tablet 50 mg PO Q4-5H PRN pain 7 days #40 07/10/22 07/12/22 Unknown Rx tabs ascorbic acid (vitamin C) 500 mg 500 mg PO DAILY 07/12/22 07/12/22 07/10/22 History tablet (Vitamin C) Allergies Allergy/AdvReac Type Severity Reaction Status Date / Time codeine Allergy UNKNOWN Verified 07/04/22 11:05 hydrocodone Allergy UNKNOWN Verified 07/04/22 11:05 metronidazole [From Flagyl] Allergy UNKNOWN Verified 07/04/22 11:05 naproxen [From Naprosyn] Allergy UNKNOWN Verified 07/04/22 11:05 PFSH Acute PFSH: Medical History BPH with obstruction/lower urinary tract symptoms Degenerative spinal arthritis Diverticulosis Elevated PSA Erectile dysfunction History of basal cell carcinoma of skin Mixed hyperlipidemia Peyronie's disease Vitamin D deficiency Surgical History H/O radical excision of skin lesion FACE Hx of circumcision Family History Father , AT AGE 77 Cancer LUNG Mother CAD (coronary artery disease) Social History Smoking and tobacco status: current every day smoker Alcohol intake: never Substance/Drug Use: unknown Marital status: Current occupational status: retired Vitals/I&O/Wt Last Vital Signs Temp 97.6 F 07/12/22 10:41 Pulse 85 07/12/22 10:41 Resp 17 07/12/22 15:48 BP 117/93 07/12/22 13:21 Pulse Ox 90 07/12/22 15:48 O2 Del Method Room Air 07/12/22 14:30 Weight last 48 hrs Weight 140 lb Physical Exam Narrative: General: AOx3, no acute distress, well developed, well nourished, appears stated age. thick bandages around neck. no visible bleeding. C/D/I psych: appropriate mood and affect. good judgment and insight. No suicidal or homicidal ideation. Head: atraumatic, normocephalic, no mass/lesions Eyes: conjunctiva clear w/o exudate or hemorrhage. non-icteric, EOM intact, PERRLA. no signs of nystagmus Nose: nasal mucosa pink, septum midline Oropharynx: poor dentition, pink moist mucosa, mallampati II. non-deviated tongue, no buccal nodules/lesions. no pharyngeal exudate Neck: limited ROM 2/2 pain. Chest: atraumatic, symmetrical CVD: RRR, normal S1 and S2, no M/R/G. 2+ pulse x 4 extremities, no JVD, no carotid bruit. Lungs: clear lung sounds in all [place], with possible decreased breathing sounds on LLL. no rhonchi, wheezing, rales. Abdomen: NT, ND, soft, NABS. No hepatosplenomegaly, no mass. umbilicus midline w/o herniation Neuro: CNII-XII grossly intact. No atrophy, weakness, tremors or clonus.? 2+ DTR, no sensory abnormalities. Skin:? no rash, vesicles, lesions. Data 07/12/22 12:21 07/12/22 12:21 A&P Assessment and plan (1) Supraglottic edema: (2) Aspiration pneumonia: (3) Multiple masses of neck: (4) Neoplasm of tonsil: (5) BPH with obstruction/lower urinary tract symptoms: (6) Elevated bilirubin: (7) Dehydration: (8) Leukocytosis: Plan Supraglottic edema -s/p tonsillectomy and Lymphadenectomy 07/10/22 -Admitted to ICU for observation -Dr. Bentley is on-call thus no transfer was necessary -will consult Dr. Bentley -IV decadron 10 initial bolus followed by 4mg IV q 6hrs -close monitoring of airway Possible Pneumonia -concern for aspiration PNA -IV rocephin x 1 in ED -will hold off on PO medication 2/2 dysphagia -IV Unasyn 1.5g q6hrs -sputum Cx if possible Dehydration -LR 100cc/hr -IVF until airway becomes better protected Neoplasm of tonsil -pending biopsy report -oncology and PET scan as outpatient Elevated bilirbin -will get RUQ US BPH -can start flomax and finasteride when tolerating PO Close monitoring IV decadron and Abx pending Cx lovenox for DVT prophylaxis Dr. Bentley consulted. Attestations Medical Necessity Statement*: respiratory compromise, observation in ICU Coding Level of Care Code 89853 Diagnoses Supraglottic edema J38.4 Aspiration pneumonia J69.0 Multiple masses of neck R22.1 Neoplasm of tonsil D49.0 BPH with obstruction/lower urinary tract symptoms N40.1; N13.8 Elevated bilirubin R17 Dehydration E86.0 Leukocytosis D72.829
[2022-07-12 16:49] LABS: Troponin 5 2HR Delta 1.24 ABS# (0-10)
[2022-07-12] MEDS: lactated ringers 1,000 ML 100 ML IV (17:37)
[2022-07-12] MEDS: famotidine 20 mg/2 mL INJ IVP (17:37)
[2022-07-12] MEDS: enoxaparin 40 mg/0.4 mL Syringe SUBCUT (17:37)
[2022-07-12] MEDS: dexamethasone 10 mg/mL INJ IVP (17:38)
[2022-07-12] MEDS: ampicillin-sulbactam 1.5 GM in sodium chloride 0.9% (plus) 50 ML IV ×2 (17:52→22:36)
--- NOTE | 2022-07-12 18:55 | PC.NURSE ---
Pt was admitted to ICU via wheelchair on room air. Right neck incision was noted to have 8 marie and a drain present. Dressed with 4x4's.
[2022-07-12 19:00] LABS: Troponin 5 6HR 11.69 ng/L (0-15)
[2022-07-12 19:09] LABS: Troponin 5 6HR Delta 1.69 ng/L (0-12)
[2022-07-12] MEDS: dexamethasone 4 mg/mL INJ IVP (22:28)
[2022-07-13] VITALS (27 sets, daily range): BP systolic 107–152; BP diastolic 67–95; PULSE 48–103; RESP 16–25; TEMP 36.6–36.9; O2SAT 90–94
[2022-07-13] MEDS: lactated ringers 1,000 ML 100 ML IV ×2 (04:18→14:25)
[2022-07-13] MEDS: dexamethasone 4 mg/mL INJ IVP ×4 (04:20→22:06)
[2022-07-13] MEDS: famotidine 20 mg/2 mL INJ IVP ×2 (04:21→18:38)
[2022-07-13 04:43] LABS: Basophils % 0.1 %; Hematocrit 43.3 % (42.0-52.0); Hemoglobin 13.9 g/dL (11.7-16.6); Lymphocytes # 0.8 10^3/uL (0.8-4.8); Lymphocytes % 10.4 %; Mean Corpuscular HGB Conc 32.1 g/dL (30.0-36.0); Mean Corpuscular Hemoglobin 28.6 pg (28.0-34.0); Mean Corpuscular Volume 89.1 fl (80-94); Mean Platelet Volume 9.7 fL (7.4-10.4); Monocytes # 0.1 10^3/uL (0.2-0.9); Monocytes % 1.1 %; Neutrophils % 88.1 %; Nucleated Red Blood Cells % 0 %; Platelet Count 257 10^3/cmm (130-400); Red Blood Count 4.86 10^6/uL (4.1-5.3); Red Cell Distribution Width 13.4 % (12.1-15.1); White Blood Count 7.6 10^3/uL (4.0-10.0)
[2022-07-13 05:00] LABS: Alanine Aminotransferase 11 U/L (0-41); Albumin Level 3.9 g/dL (3.5-5.2); Alkaline Phosphatase 90 U/L (40-130); Anion Gap 21.1 (5-19); Aspartate Amino Transferase 16 U/L (0-40); Blood Urea Nitrogen 15 mg/dL (8-23); Calcium 8.9 mg/dL (8.5-10.5); Carbon Dioxide 19 mmol/L (22-29); Chloride 100 mmol/L (98-107); Globulin 3.1 g/dL (1.3-4.6); Glucose 119 mg/dL (65-115); Osmolality Calculated 284 mOsm/kg (285-295); Potassium 4.1 mmol/L (3.5-5.1); Sodium 136 mmol/L (136-145); Total Bilirubin 1.4 mg/dL (0.15-1.2)
[2022-07-13 05:04] LABS: Creatinine Clr Calc Pharmacy 83.0515
[2022-07-13] MEDS: ampicillin-sulbactam 1.5 GM in sodium chloride 0.9% (plus) 50 ML IV ×4 (05:45→22:35)
--- NOTE | 2022-07-13 06:00 | US_ITS ---
WS: [id number] RIGHT UPPER QUADRANT ULTRASOUND HISTORY: elevated bilirubin COMPARISON: None available. Liver: 16.0 cm in length. Normal size liver and echogenicity. No bile duct dilatation or mass. Portal Vein: Normal size. No waveform submitted. Gallbladder: Small amount of debris in the dependent portion of the gallbladder consistent with sludg e and probable small stones. No pericholecystic fluid or gallbladder wall thickening. CBD: 0.4 cm Pancreas: Portions of the head and tail are obscured. The body is negative. Right kidney: 10.5 cm in length. Normal size and echogenicity. No hydronephrosis or mass. Aorta and IVC: Unremarkable abdominal aorta and IVC. No ascites. US/US gall bladder [id number] IMPRESSION: 1. Normally distended gallbladder with a very small amount of sludge and possi ble gravel-like stones. No evidence for acute cholecystitis. 2. Nonvisualization of the pancreas. 3. No bile duct dilatation.
[2022-07-13] MEDS: albuterol 2.5 mg/3 mL Neb INHALATION (08:33)
--- NOTE | 2022-07-13 13:54 | PM.PN ---
Subjective Subjective: This morning patient is getting speech evaluation IV fluids running Hemodynamic stable Heart rate slightly around 100 205 Sinus tachycardia Afebrile Noncommanding active shortness of breath chest pain Vitals/I&O/Wt Last Vital Signs Temp 98.5 F 07/13/22 04:00 Pulse 90 07/13/22 08:39 Resp 20 H 07/13/22 08:35 BP 152/67 07/13/22 06:00 Pulse Ox 94 07/13/22 08:35 O2 Del Method Room Air 07/13/22 08:35 07/12/22 07/13/22 07/13/22 22:59 06:59 14:59 Intake Total 1238.333 / 8247.951 5101.667 / 2370.000 Output Total 500 / 500 575 / 1075 Balance 738.333 / 738.333 556.667 / 1295.000 Weight last 48 hrs Weight 66.542 kg Weight 63.503 kg Physical Exam Narrative: Sitting comfortably in his bed No active drooling of saliva No active stridor or wheezing No abnormal breath sounds on lung auscultation Currently on room air Hemodynamic stable Abdomen soft Muscle mass loss Clinically looks dehydrated S1, S2 sinus tachycardia Data 07/13/22 04:19 07/13/22 04:19 Micro: Microbiology 07/12/22 18:27 Blood Culture - Preliminary Blood SPECIMEN COLLECTED 07/12/22 18:19 Blood Culture - Preliminary Blood SPECIMEN COLLECTED A&P Assessment and plan (1) Leukocytosis: (2) Aspiration pneumonia: (3) Dehydration: (4) Supraglottic edema: (5) Multiple masses of neck: (6) Neoplasm of tonsil: (7) BPH with obstruction/lower urinary tract symptoms: Plan Supraglottic edema status post surgery by Dr. Bentley 07/10 Patient is currently not experiencing any shortness of breath or chest pain Able to protect airway Currently on room air Decadron for to reduce swelling Unasyn for aspiration pneumonia Currently patient is clinically is stable I will watch him in the ICU [address] Bentley might see him on Thursday Speech therapy to see him today We will add low-dose morphine Continue LR for his sinus tachycardia, clinical signs of dehydration present Hold DVT prophylaxis in case he would require any intervention Full code N.p.o. for now we will follow-up with speech therapy recommendation Attestations Medical Necessity Statement*: Continue ICU management Diagnoses Leukocytosis D72.829 Aspiration pneumonia J69.0 Dehydration E86.0 Supraglottic edema J38.4 Multiple masses of neck R22.1 Neoplasm of tonsil D49.0 BPH with obstruction/lower urinary tract symptoms N40.1; N13.8
--- NOTE | 2022-07-13 18:15 | PC.NURSE ---
Shift summary: Pt alert and oriented. Per pt minor pain, no higher than a 3 on 0-10 scale, in his right neck. Miah drain intact. Scant to no drainage noted tis shift. Speech eval and seen pt twice today. He was started on clear liquid diet at dinner, he managed to take in half the broth. He stated that was all he could do at the moment. No coughing noted from his room during meal time. Sinus rhythm noted on monitor. He remains on room air with O2 sats greater than 94%. He has been out of bed to brush his teeth once and several times for urinal use. Urine pale yellow, Output more than 1000 ml this shift. Pt updated on care and his progress throughout the shift.
[2022-07-14] VITALS (11 sets, daily range): BP systolic 116–144; BP diastolic 68–105; PULSE 55–94; RESP 19–24; TEMP 36.5–36.6; O2SAT 91–95
[2022-07-14] MEDS: lactated ringers 1,000 ML 75 ML IV (01:54)
[2022-07-14] MEDS: ampicillin-sulbactam 1.5 GM in sodium chloride 0.9% (plus) 50 ML IV (04:41)
[2022-07-14] MEDS: dexamethasone 4 mg/mL INJ IVP (04:41)
[2022-07-14] MEDS: famotidine 20 mg/2 mL INJ IVP (04:41)
--- NOTE | 2022-07-14 07:20 | CT_ITS ---
WS: [id number] CT NECK TECHNIQUE: Noncontrast CT of the neck with coronal and sagittal reformatted images. CLINICAL INFORMATION: air way narrowing , dysphagia COMPARISON: 07/12/22 DLP: 181.[address] scans at [facility] use at least one of these dose optimization techniques: automated e xposure control; mA and/or kV adjustment per patient size (includes targeted exams where dose is matc hed to clinical indication); or iterative reconstruction. FINDINGS: Postoperative changes RIGHT neck. New from July 01, 2022. RIGHT tonsillar mass has been resected. Po stsurgical drain RIGHT neck adjacent to the RIGHT internal jugular vein unchanged. No drainable fluid collections. Previously described postoperative edema involving the posterior pharyngeal and hypopha ryngeal soft tissues and supraglottic larynx has improved compared to previous. Normal vallecula and piriform sinuses today. Normal epiglottis. Subglottic airway is patent. This has significantly improv ed compared to July 12, 2022. Mastoid air cells well aerated. Mild mucosal thickening in the paranasal sinuses. Normal thyroid glan d. Chronic emphysematous changes in the lung apices. Advanced spondylitic changes cervical spine unch anged. Contrast was not administered today. CT/CT neck wo con [id number] IMPRESSION: 1. Significant interval improvement in the supraglottic and parapharyngeal nathaly ma compared to the postoperative examination. 2. Mild residual edema involving the glottis. Subglottic airway is patent. 3. Postoperative changes RIGHT neck with postsurgical drain. No drainable flui d collections. 4. No other significant changes compared to previous.
--- NOTE | 2022-07-14 09:32 | PC.NURSE ---
Called Dr Bentley'z office at patent's request to inform pt in hospital in ICU and he had an appt at 1030.
--- NOTE | 2022-07-14 10:01 | P.DS_ITS ---
Discharge Providers Date of Admission: 07/12/22 14:53 Date of Discharge: July 14, 2022 Attending Provider at Admission: Candido Sebastian MD Attending Provider at Discharge: Aleksandra Marques MD Primary Care Provider: HARSH Baugh Diagnoses at Discharge Discharge Diagnosis (1) Leukocytosis: Status: Acute (2) Aspiration pneumonia: Status: Acute (3) Dehydration: Status: Acute (4) Supraglottic edema: Status: Acute (5) Multiple masses of neck: Status: Acute (6) Neoplasm of tonsil: Status: Acute (7) BPH with obstruction/lower urinary tract symptoms: Status: Acute Reason for Visit Reason for Visit: SOB post surgery 07/10 Hospital Course Hospital Course 67-year-old male who was admitted to the ICU for management of supraglottic edema perivertebral edema contributing to supraglottic airway narrowing 7 x 3 mm, recent tonsillectomy LN excision presents for SOB and difficulties swallowing. DOS was 07/10/[address] Bentley. 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 R tonsils where resected for biopsy and cervical lymphadenectomy was also performed. patient remained afebrile, he did well on room air, he was put n.p.o. speech therapy recommended clear liquids, repeat neck CT scan on Thursday showed significant improvement, he was given Unasyn IV antibiotics along with Decadron. Did well on room air. I have spoken with Dr. Bentley who has recommended antibiotics at the time of discharge and follow-up on Thursday which is his regular follow-up appointment. I am discharging this patient in stable condition and after reviewing repeat neck CT scan which is showing significant improvement of edema. I will discontinue p.o. Keflex and give him liquid form. CT/CT neck wo con [id number] IMPRESSION: ? 1.? Significant interval improvement in the supraglottic and parapharyngeal edema compared to the postoperative examination. 2.? Mild residual edema involving the glottis. Subglottic airway is patent. 3.? Postoperative changes RIGHT neck with postsurgical drain. No drainable fluid collections. 4.? No other significant changes compared to previo Physical Exam Narrative: Patient is awake and alert No audible stridor or wheezing Nonfocal neuro exam Discharge Data Studies Completed and Pending Completed Studies During Hospitalization Category Date Time Status CT chest w con* [id number] Stat Cat Scan 07/12/22 13:[address] neck w con* [id number] Stat Cat Scan 07/12/22 12:[address] neck wo con [id number] Routine Cat Scan 07/14/22 07:20 Completed XR chest 1V portable [id number] Stat Exams 07/12/22 11:23 Completed US gall bladder [id number] Routine Ultrasound 07/13/22 06:00 Completed Pending at discharge Category Date Time Status Blood Culture Stat Lab 07/12/22 18:27 Results Sputum Culture and Gram Stain Stat Lab 07/13/22 00:40 Results Radiology Impressions Chest X-Ray 07/12/22 11:23 IMPRESSION: Mild left basilar airspace opacity may reflect atelectasis versus aspiration or pneumonia. Chest CT 07/12/22 13:02 IMPRESSION: 1. Mild mediastinal lymphadenopathy. 2. Mild emphysema. 3. Cholelithiasis without definite gallbladder wall thickening. 4. Mild splenomegaly. 5. Please see dedicated CT of the neck for associated findings. COMMENTS: In the absence of a history or active diagnosis of lung cancer, it is recommended that this patient with emphysema be evaluated for enrollment in a low dose CT lung cancer screening program. Gallbladder Ultrasound 07/13/22 06:00 IMPRESSION: 1. Normally distended gallbladder with a very small amount of sludge and possible gravel-like stones. No evidence for acute cholecystitis. 2. Nonvisualization of the pancreas. 3. No bile duct dilatation. Neck CT 07/14/22 07:20 IMPRESSION: 1. Significant interval improvement in the supraglottic and parapharyngeal edema compared to the postoperative examination. 2. Mild residual edema involving the glottis. Subglottic airway is patent. 3. Postoperative changes RIGHT neck with postsurgical drain. No drainable fluid collections. 4. No other significant changes compared to previous. Laboratory Results WBC 7.6 10^3/uL (4.0-10.0) 07/13/22 04:19 RBC 4.86 10^6/uL (4.1-5.3) 07/13/22 04:19 Hgb 13.9 g/dL (11.7-16.6) 07/13/22 04:19 Hct 43.3 % (42.0-52.0) 07/13/22 04:19 MCV 89.1 fl (80-94) 07/13/22 04:19 MCH 28.6 pg (28.0-34.0) 07/13/22 04:19 MCHC 32.1 g/dL (30.0-36.0) 07/13/22 04:19 RDW 13.4 % (12.1-15.1) 07/13/22 04:19 Plt Count 257 10^3/cmm (130-400) 07/13/22 04:19 MPV 9.7 fL (7.4-10.4) 07/13/22 04:19 Neut % (Auto) 88.1 % 07/13/22 04:19 Lymph % (Auto) 10.4 % 07/13/22 04:19 Buchanan % (Auto) 1.1 % 07/13/22 04:19 Eos % (Auto) 0.0 % 07/13/22 04:19 Baso % (Auto) 0.1 % 07/13/22 04:19 Neut # (Auto) 6.70 10^3/uL (1.8-7.7) 07/13/22 04:19 Lymph # (Auto) 0.8 10^3/uL (0.8-4.8) 07/13/22 04:19 Buchanan # (Auto) 0.1 10^3/uL (0.2-0.9) L 07/13/22 04:19 Eos # (Auto) 0.0 10^3/uL (0.0-0.8) 07/13/22 04:19 Baso # (Auto) 0.0 10^3/uL (0.0-0.1) 07/13/22 04:19 Nucleated RBC % (auto) 0 % 07/13/22 04:19 Nucleated RBCs # 0.0 /100WBC 07/13/22 04:19 Sodium 136 mmol/L (136-145) 07/13/22 04:19 Potassium 4.1 mmol/L (3.5-5.1) 07/13/22 04:19 Chloride 100 mmol/L (98-107) 07/13/22 04:19 Carbon Dioxide 19 mmol/L (22-29) L 07/13/22 04:19 Anion Gap 21.1 (5-19) H 07/13/22 04:19 BUN 15 mg/dL (8-23) 07/13/22 04:19 Creatinine 0.6 mg/dL (0.7-1.2) L 07/13/22 04:19 GFR Calculation 134.0 mL/min (90-130) H 07/13/22 04:19 Glucose 119 mg/dL (65-115) H 07/13/22 04:19 Calculated Osmolality 284 mOsm/kg (285-295) L 07/13/22 04:19 Lactic Acid 1.1 mmol/L (0.5-2.2) 07/12/22 12:21 Calcium 8.9 mg/dL (8.5-10.5) 07/13/22 04:19 Total Bilirubin 1.4 mg/dL (0.15-1.2) H 07/13/22 04:19 AST 16 U/L (0-40) 07/13/22 04:19 ALT 11 U/L (0-41) 07/13/22 04:19 Alkaline Phosphatase 90 U/L (40-130) 07/13/22 04:19 Troponin T Baseline 10 ng/L (0-15) 07/12/22 12:21 Troponin T 120 Minute 11.24 ng/L (0-15) 07/12/22 14:26 Delta Troponin T 1.24 ABS# (0-10) 07/12/22 14:26 Troponin T Hi Sens 6Hr 11.69 ng/L (0-15) 07/12/22 18:19 Troponin T Hi Sens 6Hr Delta 1.69 ng/L (0-12) 07/12/22 18:19 C-Reactive Protein 46.1 mg/L (0.0-4.9) H 07/12/22 12:21 NT-Pro-B Natriuret Pep 284 pg/mL (0-125) H 07/12/22 12:21 Total Protein 7.0 g/dL (6.6-8.7) 07/13/22 04:19 Albumin 3.9 g/dL (3.5-5.2) 07/13/22 04:19 Globulin 3.1 g/dL (1.3-4.6) 07/13/22 04:19 Vitals Last Vital Signs Temp 97.7 F 07/14/22 07:00 Pulse 90 07/14/22 09:54 Resp 20 H 07/14/22 09:54 BP 144/93 07/14/22 09:00 Pulse Ox 94 07/14/22 09:49 O2 Del Method Room Air 07/14/22 09:49 Discharge Plan Discharge Patient Disposition: Home Condition: Stable Prescriptions: New cephalexin 250 mg/5 mL suspension for reconstitution 500 mg PO Q12H 5 Days Qty: 100 0RF Continued coenzyme [id number] E 100-100 mg-unit capsule 1 cap PO DAILY cholecalciferol (vitamin D3) 50 mcg (2,000 unit) capsule 50 mcg PO DAILY tamsulosin 0.4 mg capsule 0.8 mg PO DAILY Qty: 180 3RF promethazine-DM 6.25-15 mg/5 mL syrup 5 - 10 ml PO Q6H PRN (Reason: cough) Qty: 240 0RF albuterol sulfate [Ventolin HFA] 90 mcg/actuation HFA aerosol inhaler 2 puff inhalation QID PRN (Reason: shortness of breath or wheezing) Qty: 6.7 0RF Vitamin C 500 mg Tablet 500 mg PO DAILY finasteride 5 mg tablet 5 mg PO DAILY tramadol 50 mg tablet 50 mg PO Q4-5H PRN (Reason: pain) 7 Days Qty: 40 0RF Discontinued cephalexin 500 mg capsule 500 mg PO TID 10 Days Qty: 30 0RF Discharge Orders: Discharge Order (Routine); Ordered 07/14/22 Ordered By: Aleksandra Marques Referrals: Kath Pitt, [employer] [Primary Care Provider] - Discharge Diet: Full LIquid Patient Instructions: Opioid Safety Discharge Attestations Time Spent in Discharge Care*: greater than 30 min Quality Metrics Clinical Quality Measures [ No reported AMI, CVA or VTE this stay] Coding Level of Care Code Acute Code for Chg Fwd Diagnoses Leukocytosis D72.829 Aspiration pneumonia J69.0 Dehydration E86.0 Supraglottic edema J38.4 Multiple masses of neck R22.1 Neoplasm of tonsil D49.0 BPH with obstruction/lower urinary tract symptoms N40.1; N13.8
--- NOTE | 2022-07-14 11:00 | PC.NURSE ---
[facility] [place] pharmacy called and asked to fax prescription to [facility] per patient and request. Pharmacy will do.
--- NOTE | 2022-07-14 11:10 | PC.NURSE ---
Discharge instructions provided and discussed. Pt to keep all previously scheduled follow-up appts. Pt to go to Dr Bentley office immediately after discharge. Pt discharged via W/C. with pt.
== END 2022-07-14 11:10 | disposition home or self-care (01) ==
LOC: ER 11:39 → ICU 15:23
PROVIDERS: Admitting Provider Family Medicine; Emergency Provider Emergency Medicine; PCP Nurse Practitioner; Visit Provider Internal Medicine
DX: J38.4 Edema of larynx (principal); J69.0 Pneumonitis due to inhalation of food and vomit; E78.2 Mixed hyperlipidemia; E86.0 Dehydration; R22.1 Localized swelling, mass and lump, neck; D49.0 Neoplasm of unspecified behavior of digestive system; D72.829 Elevated white blood cell count, unspecified; N40.1 Benign prostatic hyperplasia with lower urinary tract symptoms; N13.8 Other obstructive and reflux uropathy; R17 Unspecified jaundice; F17.200 Nicotine dependence, unspecified, uncomplicated
CPT/HCPCS: 36415; 70490; 70491; 71045; 71260; 76705; 80053; 83605; 83880; 84484; 85025; 86140; 87040; 87070; 87205; 92523; 92526; 92610; 93005; 94640; 96365; 96372; 96375; 96376; 99285; G0378; J0295; J0696; J1100; J1650; J3490; J7030; J7120; J7613; Q9967

== ENCOUNTER → 2022-07-14 11:42 | Outpatient (BNVA) | payer MEDICARE, SELFPAY | PROVIDERS: PCP Nurse Practitioner; Visit Provider Otolaryngology | DX: C77.0 Secondary and unspecified malignant neoplasm of lymph nodes of head, face and neck (principal); C09.9 Malignant neoplasm of tonsil, unspecified | CPT/HCPCS: 99024 ==

== ENCOUNTER → 2022-07-18 10:12 | Outpatient (BNVA) | payer MEDICARE, SELFPAY | PROVIDERS: PCP Nurse Practitioner; Visit Provider Otolaryngology | DX: Z48.89 Encounter for other specified surgical aftercare (principal); C09.9 Malignant neoplasm of tonsil, unspecified | CPT/HCPCS: 99024 ==

== ENCOUNTER 2022-07-23 09:02 | Oncology outpatient (recurring) (ONCR) | payer MEDICARE, SELFPAY | END 2022-08-06 23:59 | disposition home or self-care (01) | PROVIDERS: PCP Nurse Practitioner; Visit Provider Internal Medicine Medical Oncology | DX: C09.9 Malignant neoplasm of tonsil, unspecified (principal); Z90.09 Acquired absence of other part of head and neck; C77.0 Secondary and unspecified malignant neoplasm of lymph nodes of head, face and neck; F17.210 Nicotine dependence, cigarettes, uncomplicated | CPT/HCPCS: 99205 ==

== ENCOUNTER 2022-07-26 05:48 | Outpatient (CLI) | payer MEDICARE, SELFPAY ==
--- NOTE | 2022-07-26 08:30 | PETR_ITS ---
PROCEDURE INFORMATION: Exam: PET/CT Skull Base to Mid-thigh Exam date and time: 07/26/2022 9:46 AM Age: 67 years old Clinical indication: Right cervical lymphadenectomy on 07/10/2022. LABS AND CLINICAL REPORTS: Glucose: 107 mg/dl Treatment strategy for malignancy (PET staging): Initial Staging (PI) TECHNIQUE: Imaging protocol: Following at least four-hour fasting and following the injection of radiopharmaceutical, low dose CT images were obtained. Then, PET images were obtained. Attenuation corrected images were constructed using the CT scan. Fused images of PET and CT were reviewed. The standardized uptake values (SUV) reported below are maximum values within a region of interest, expressed in gm/ml. Exam includes orbital meatal line to mid-thigh. Radiopharmaceutical: 11.55 mCi F-18 FDG (Fluorodeoxyglucose), IV. Time of imaging post radiopharmaceutical administration: 54.1 minutes. Injection site: Right antecubital vein. COMPARISON: 1. CT neck without contrast 07/14/2022. 2. CT neck with contrast 07/12/2022. 3. CT chest 07/12/2022. FINDINGS: Brain: Visualized brain has normal physiologic uptake. Paranasal sinuses: Chronic bilateral maxillary sinus disease with mucoperiosteal thickening no air-fluid level. Pharynx: The cancer of the right palatine tonsil is 1.7 x 1.5 x 4.0 cm (transverse x ant-post x craniocaudal) (series 3, images 16-23). Its SUVmax is 7.3. Larynx: No abnormal uptake. Lungs, pleura and trachea: Mild centrilobular emphysema. No pulmonary nodules. Mild bilateral dependent subpleural atelectasis. Heart: Normal physiologic uptake. Mediastinal space: The esophagus is normal. Liver: No abnormal uptake. Gallbladder and bile ducts: Cholelithiasis without evidence of cholecystitis. Pancreas: No abnormal uptake. Spleen: No abnormal uptake. No splenomegaly. Adrenal glands: No abnormal uptake. Kidneys and ureters: Normal physiologic uptake. Stomach and bowel: The stomach and duodenum are unremarkable. The small bowel is normal in caliber without wall thickening. Sigmoid colonic diverticulosis without evidence of diverticulitis. The colon is otherwise unremarkable. There is no acute colonic distention or inflammation. Reproductive: The prostate appears appropriate for 67 years of age. Vasculature: No abnormal uptake. Lymph nodes: At the right level IIa (upper internal jugular) lymph node station, SUV max is 3.5 and short axis is 6 mm. No left cervical lymphadenopathy. A nonenlarged subcarinal lymph node has an SUV max of only 3.0. Its short axis is 0.7 cm. No FDG avid lymph nodes in the chest, abdomen or pelvis. Bones/joints: Advanced cervical spondylosis. No osseous metastatic disease. Soft tissues: Postoperative changes of right neck. [facility] [id number] IMPRESSION: 1. The cancer of the right palatine tonsil is 1.7 x 1.5 x 4.0 cm. Its SUVmax is 7.3. 2. At the right level IIa (upper internal jugular) lymph node station, SUV max is 3.5 its short axis is 6 mm. No left cervical lymphadenopathy. No FDG avid lymph nodes in the chest, abdomen or pelvis. 3. No pulmonary nodules. 4. No FDG avid distant metastases. 5. Cholelithiasis without evidence of cholecystitis.
== END 2022-07-26 05:49 | disposition home or self-care (01) ==
PROVIDERS: PCP Nurse Practitioner; Visit Provider Nurse Practitioner Family
DX: C09.9 Malignant neoplasm of tonsil, unspecified (principal); K80.20 Calculus of gallbladder without cholecystitis without obstruction
CPT/HCPCS: 78815; A9552

== ENCOUNTER 2022-07-30 15:12 | Outpatient (CLI) | payer MEDICARE, SELFPAY ==
[2022-07-30 16:06] LABS: Prostate Specific AG Urology 6.51 ng/mL (0-4)
== END 2022-07-30 15:13 | disposition home or self-care (01) ==
PROVIDERS: PCP Nurse Practitioner; Visit Provider Urology
DX: R97.20 Elevated prostate specific antigen [PSA] (principal); Z48.89 Encounter for other specified surgical aftercare; C09.9 Malignant neoplasm of tonsil, unspecified; C77.0 Secondary and unspecified malignant neoplasm of lymph nodes of head, face and neck
CPT/HCPCS: 84153; 99024

== ENCOUNTER → 2022-08-05 09:46 | Outpatient (BNVA) | payer MEDICARE, SELFPAY | PROVIDERS: PCP Nurse Practitioner; Visit Provider Urology | DX: N48.6 Induration penis plastica (principal); N52.9 Male erectile dysfunction, unspecified; N13.8 Other obstructive and reflux uropathy; R97.20 Elevated prostate specific antigen [PSA]; N40.1 Benign prostatic hyperplasia with lower urinary tract symptoms | CPT/HCPCS: 51741; 51798; 81003; 99213 ==

== ENCOUNTER → 2022-09-01 13:21 | Outpatient (BNVA) | payer MEDICARE, SELFPAY | PROVIDERS: PCP Nurse Practitioner; Visit Provider Otolaryngology | DX: C09.9 Malignant neoplasm of tonsil, unspecified (principal); Z48.89 Encounter for other specified surgical aftercare | CPT/HCPCS: 99024 ==

== ENCOUNTER 2022-11-13 12:48 | Oncology outpatient (recurring) (ONCR) | payer MEDICARE, SELFPAY ==
--- NOTE | 2022-11-13 15:03 | N.ONRAD NP_ITS ---
Radiation Oncology New Patient Visit Patient: Jin Bateman MR#: [id number] : 1955 Age: 67 Sex: Male Dictated by: Willem Sargent Date of Service: 11/13/2022 Referring Physician(s) : Dr. Jason Carlos; Dr. Yanez Datar Diagnosis: Lung, left, lower lobe, squamous cell carcinoma, stage [id number] Radiotherapy to date: Summary > No prior radiation therapy. Chief Complaint / History of Present Illness: Mr. Davis is a 72-year-old man with severe COPD, on home O2 at 5 L, who was found to have a 6 spiculated mass measuring [address] of the chest done 10/03/2022. A PET 10/25/2022 showed an SUV of 6.2 in the mass, concerning for malignancy. He underwent a bronchoscopy and a biopsy from that procedure confirmed squamous cell carcinoma. He had questionable hilar and mediastinal nodes. Lymph nodes from station 11 R, station 7, and station 4L were biopsied and all were negative for malignancy. Due to his pulmonary condition and other health problems Mr. Brumfield is not a candidate for surgery. He is referred for SBRT. The patient has had no significant change in his overall pulmonary status recently. Current Medications: As of 11/12/2022 vitamin C, fluticasone Trelegy Ellipta, guaifenesin ER, hydroxychloroquine, levofloxacin, magnesium, try iodine, vitamin D3. Allergies: No known allergies. Medical History: No history of collagen vascular disease. No previous radiation therapy. Severe COPD with an acceptable FEV1 but very poor DLCO. He has a benign prostatic hypertrophy. He has moderate to severe obstructive symptoms. He has a history of an AAA. Surgical History: Umbilical hernia repair, right inguinal hernia repair. Family History: Parents in their 80s. Social History: He smokes about half a pack per day and has done so for 59 years. Minimal alcohol intake. He is and retired. Current Complaints / Review of Systems: . Vital Signs: Performed on 11/13/2022 1:46 PM BMI - 20.223 kg/m2, Height - 68 in, Weight - 133 lbs, Temperature - 97.3 f, Pulse - 84 /min, Respiration - 18 /min, O2 Sat - 98 %, Pain - 0, Fatigue - 0 and BP - 119/ 78 mm(hg). Physical Exam: Alert, oriented, no acute distress. He is on O2 per nasal cannula. He appears chronically ill. No cervical or supraclavicular lymph adenopathy. Lungs clear to percussion. On auscultation he has significantly decreased breath sounds bilaterally. No rales, rhonchi, or wheezes. Heart rhythm regular. No murmur or gallop noted. Abdomen no distention. No organomegaly or mass or tenderness. Musculoskeletal no bone tenderness. Performance Status: ECOG 3 Pathology: Squamous cell carcinoma Lab: Imaging: See HPI single 8 mm malignant lower lobe mass Impression: Mr. Davis has an early stage squamous cell carcinoma of the left lower lobe found on CT screening. Due to his pulmonary status, he is not a candidate for surgical resection. We discussed SBRT in 4-5 sessions. He wishes to proceed in that manner. I told him there could be some pulmonary fibrosis develop which could have an impact on his breathing but is unlikely to do so. Plan: Simulation will be scheduled. End of dictation thanks Signed by: 11/13/2022 3:01:50 PM <<Signature on File>> Time spent with patient: CPT Code: CPT Code:
--- NOTE | 2022-11-13 17:46 | N.ONRAD NP_ITS ---
Radiation Oncology New Patient Visit Patient: Jin Bateman MR#: [id number] : 1955> Age: 67> Sex: Male> Dictated by: Willem Sargent Date of Service: 11/13/2022 Referring Physician(s) : Homero Pak MD Diagnosis: Oropharynx, tonsil, right, squamous cell carcinoma, p16 plus, stage T1N1 M0 Radiotherapy to date: Summary > No prior radiation therapy. Chief Complaint / History of Present Illness: Mr. Bateman is a gentleman who presented about 4 months ago with a mass in the right side of his neck. A CT revealed a mass in the right palatine tonsil and right cervical lymphadenopathy. On 07/10/2022 he underwent a right tonsillectomy and right cervical lymphadenectomy. The pathology on the tonsil showed grade 2 keratinizing squamous cell carcinoma measuring 18 x 15 mm. A positive margin was noted. The cancer was p16 positive. The neck surgery revealed cystic change and extensive necrosis in a single lymph node measuring 2.2 cm. He had a difficult postoperative course and was hospitalized with aspiration pneumonia. After improving from the pneumonia he was referred to the head and neck surgery department at [facility]. His case was discussed at cancer conference and it was decided that he should undergo further surgery. That was performed 10/16/2022. A radical tonsillectomy was performed. No residual squamous cell carcinoma was identified. Margins were free of cancer and dysplasia. He had a total of 18 lymph nodes removed from the neck and 1 contained metastatic squamous cell carcinoma. Size of the metastasis was 1.1 cm and there was no extranodal extension. Mr. Bateman's case was discussed at the [facility] cancer conference again following his surgery. Postoperative radiation was recommended. Mr. Bateman saw Dr. Pak today. Dr. Pak agrees with the tumor board recommendation of no chemotherapy. He refers the patient for postoperative radiation. Mr. Bateman is recovering nicely. He has mild stiffness in his neck but that is gradually improving. He is having no difficulty swallowing. He does not have any sore throat or other ENT problems. Current Medications: He is on finasteride, tamsulosin, and Cardizem. Allergies: Codeine, hydrocodone, metronidazole, naproxen Medical History: No history of collagen vascular disease. No previous radiation therapy. He had an episode of atrial fibrillation and was transferred to the intensive care unit at [facility] following his oropharynx and neck surgery. He was placed on Cardizem. He is not on anticoagulation. He has benign prostatic hypertrophy, arthritis, hyperlipidemia,vitamin D deficiency and Peyronie's disease. 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 Only other surgery related to the present illness. Family History: Father had lung cancer. Social History: . is present. He is a 50-year smoker and continues to smoke. No alcoholic beverage use. Current Complaints / Review of Systems: . Vital Signs: Performed on 11/13/2022 1:46 PM BMI - 20.223 kg/m2, Height - 68 in, Weight - 133 lbs, Temperature - 97.3 f, Pulse - 84 /min, Respiration - 18 /min, O2 Sat - 98 %, Pain - 0, Fatigue - 0 and BP - 119/ 78 mm(hg). Physical Exam: Alert, oriented, no acute distress. Neck exam reveals mild muscle tension with rotation. His incision on the neck is well-healed. There is no evidence of infection. No unusual induration or nodularity in the area. No lymphadenopathy in the neck. Oral cavity examination reveals his dentition to be in poor repair. No lesions of the oral cavity. The right tonsillar fossa area is healing well. No lesions seen in the area of the left tonsil. Lungs clear to percussion. On auscultation no rales, rhonchi, or wheezes. Heart rhythm regular with occasional irregular beats noted. No murmur or gallop. Abdomen has no distention. No organomegaly or mass or tenderness. His musculoskeletal exam reveals normal his extremities. Gait is normal without assistance. No bone tenderness. Performance Status: ECOG 0 Pathology: P16 positive squamous cell carcinoma Lab: Imaging: See HPI Impression: Mr. Bateman has undergone surgery as noted above for carcinoma of the tonsil metastatic to the ipsilateral neck. He is a candidate for postoperative radiation. I reviewed that with him. I discussed the side effects and possible complications. I discussed that in view of the anticipated xerostomia, that his dentition needs careful evaluation. Some of his lower teeth are slightly loose, and he was anticipating that they would need removal in the near future. He has seen a dentist, Dr. Willem Schaefer in [facility]. I have asked him to contact Dr. Schaefer for evaluation. Any extractions or restorations that are anticipated in the next 3 to 5 years should be done before we proceed with radiation. I told the patient he would have to make a commitment to personal tedious dental care if he keeps his teeth. I told him he will also need multiple visits to his dentist annually following radiation. I also recommended that he begin doing stretching exercises for his neck, particularly rotational movements, in an attempt to prevent further restriction in range of motion. At this point he has no bite problem and that does not need any special attention. Plan: Dental evaluation and any dental work that needs to be done. After that, he will return for simulation and postoperative radiation. I told him that he will receive about a 6-week course of treatment. Signed by: 11/13/2022 5:43:41 PM <<Signature on File>> Time spent with patient: CPT Code: CPT Code:
== END 2022-12-06 23:59 | disposition home or self-care (01) ==
LOC: ONCMED 12:48
PROVIDERS: PCP Nurse Practitioner; Visit Provider Internal Medicine Medical Oncology
DX: Z53.9 Procedure and treatment not carried out, unspecified reason (principal)

== ENCOUNTER 2023-01-06 14:28 | Oncology outpatient (recurring) (ONCR) | payer MEDICARE, SELFPAY ==
--- NOTE | 2023-01-06 15:04 | ONCRAD TMN_ITS ---
Radiation Oncology Weekly Treatment Management Patient: Fransico Abdi> MR#: [id number] : 1955> Attending Physician: Dr. Karely Johnson Date of Service: 01/06/2023 Fractions: Referring Physician(s) : Diagnosis: Squamous cell carcinoma of the right tonsil, stage T1N1 Radiotherapy to date: Course: Head Neck 2022, Treatment Site: [id number], Ref. ID: [id number], Energy: 6X, Dose/Fx (cGy): 200, #Fx: , Dose Correction (cGy): 0, Total Dose (cGy): 800, Start Date: 01/01/2023, Elapsed Days: 5 Reason for visit: The patient is being seen today as part of their regularly scheduled weekly on treatment visits to assess for acute toxicities from radiotherapy. Review of Systems: Patient is in good spirits today. He denies any complaints. Vital Signs: Performed on 01/06/2023 2:50 PM BMI - 20.253 kg/m2, Height - 68 in, Weight - 133.2 lbs, Temperature - 96.9 f, Pulse - 93 /min, Respiration - 18 /min, O2 Sat - 97 %, Pain - 0, Fatigue - 0 and BP - 108/ 63 mm(hg)(/low). Physical Exam: Patient is in no apparent distress, alert and oriented x3, skin is without changes, oral cavity is without changes. Imaging: Radiation therapy imaging related to accurate target localization (i.e. KV, MV and CBCT) was reviewed. Appropriate changes, if any, were made to ensure treatment accuracy. Plan: Patient is just started his treatments which were delivered postoperatively. He is completed 4 out of 30. His weight got down to 121 after his surgery. He is now up to 133. We will continue with his treatments as planned Signed by: Dr. Karely Johnson 01/06/2023 3:02:42 PM
== END 2023-01-06 23:59 | disposition home or self-care (01) ==
PROVIDERS: PCP Nurse Practitioner; Visit Provider Radiology Radiation Oncology
DX: Z51.0 Encounter for antineoplastic radiation therapy (principal); C09.8 Malignant neoplasm of overlapping sites of tonsil
CPT/HCPCS: 77300; 77301; 77334; 77338; 77386; 99024

== ENCOUNTER 2023-01-26 14:33 | Oncology outpatient (recurring) (ONCR) | payer MEDICARE, SELFPAY ==
--- NOTE | 2023-01-13 15:02 | ONCRAD TMN_ITS ---
Radiation Oncology Weekly Treatment Management Patient: Jin Bateman MR#: [id number] : 1955 Attending Physician: Dr. Karely Johnson Date of Service: 01/13/2023 Fractions: 9 out of 30 postop no chemotherapy Chief complaint: Today he has had a little bit of a sore throat. He says this is about a 1 out of 10 on the pain scale. He is also had problems swallowing but he said this has been there for years. He basically said that he did not think any of his issues were related to the treatment yet. Referring Physician(s) : Diagnosis: Squamous cell carcinoma of the right tonsil Radiotherapy to date: Course: Head Neck 2022, Treatment Site: [id number], Ref. ID: [id number], Energy: 6X, Dose/Fx (cGy): 200, #Fx: , Dose Correction (cGy): 0, Total Dose (cGy): 1,800, Start Date: 01/01/2023, Elapsed Days: 12 Reason for visit: The patient is being seen today as part of their regularly scheduled weekly on treatment visits to assess for acute toxicities from radiotherapy. Review of Systems: Vital Signs: As abovePerformed on 01/13/2023 2:44 PM BMI - 20.223 kg/m2, Height - 68 in, Weight - 133 lbs, Temperature - 97.2 f, Pulse - 75 /min, Respiration - 16 /min, O2 Sat - 98 %, Pain - 1, Fatigue - 0 and BP - 105/ 66 mm(hg). Physical Exam: Oral cavity is without lesions or ulcerations, skin is without moist or dry desquamation. Imaging: Radiation therapy imaging related to accurate target localization (i.e. KV, MV and CBCT) was reviewed. Appropriate changes, if any, were made to ensure treatment accuracy. Plan: At this point he is doing clinically well. He has noticed no real changes from the treatment as yet. His weight is remained stable at 133 pounds. We will continue with his treatments as planned. Signed by: Dr. Karely Johnson 01/13/2023 2:59:48 PM
--- NOTE | 2023-01-15 15:18 | ONCRAD TMN_ITS ---
Radiation Oncology Weekly Treatment Management Patient: Jin Bateman MR#: [id number] : 1955> Attending Physician: Dr. Karely Johnson Date of Service: 01/15/2023 Patient had had a mild sore throat on Thursday but today it is gotten substantially worse. On examination he had thrush across his tongue and soft palate as well as the posterior pharyngeal wall. I explained to him what did happen with overgrowth of the yeast. I reviewed with him that he could use the viscous lidocaine to help with any soreness and to take the Diflucan for 7 days. Those prescriptions were sent to the local pharmacy where he can pick them up tonight. I reassured him that hopefully within 48 hours all the symptoms would be markedly improved and that he would not have a sore throat from the treatment for another 2 weeks. Referring Physician(s) : Diagnosis: Radiotherapy to date: Course: Head Neck 2022, Treatment Site: [id number], Ref. ID: [id number], Energy: 6X, Dose/Fx (cGy): 200, #Fx: , Dose Correction (cGy): 0, Total Dose (cGy): 2,200, Start Date: 01/01/2023, Elapsed Days: 14 Reason for visit: The patient is being seen today as part of their regularly scheduled weekly on treatment visits to assess for acute toxicities from radiotherapy. Review of Systems: Vital Signs: Imaging: Radiation therapy imaging related to accurate target localization (i.e. KV, MV and CBCT) was reviewed. Appropriate changes, if any, were made to ensure treatment accuracy. Plan: Continue with treatment, start and finish Diflucan, use viscous lidocaine as needed Signed by: Dr. Karely Johnson 01/15/2023 3:16:33 PM
--- NOTE | 2023-01-21 15:36 | ONCRAD TMN_ITS ---
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 Radiotherapy to date: Course: Head Neck 2022, Treatment Site: [id number], Ref. ID: [id number], Energy: 6X, Dose/Fx (cGy): 200, #Fx: 14 / 30, Dose Correction (cGy): 0, Total Dose (cGy): 2,800, Start Date: 01/01/2023, End Date: 01/21/2023, Elapsed Days: 20 Reason for visit: The patient is being seen today as part of their regularly scheduled weekly on treatment visits to assess for acute toxicities from radiotherapy. Review of Systems: Swallowing soft food well. Now recovering from full mouth tooth extraction done prior to treatment. Using magic mouthwash. Still smoking ??? ppd also smokes which makes it harder for him to quit. Vital Signs: Performed on 01/21/2023 2:52 PM BMI - 19.797 kg/m2, Height - 68 in, Weight - 130.2 lbs, Temperature - 96.8 f, Pulse - 68 /min, Respiration - 16 /min, O2 Sat - 98 %, Pain - 0, Fatigue - 2 and BP - 101/ 63 mm(hg)(/low). Physical Exam: Minimal right neck erythema Imaging: Radiation therapy imaging related to accurate target localization (i.e. KV, MV and CBCT) was reviewed. Appropriate changes, if any, were made to ensure treatment accuracy. Plan: Good tolerance of treatment. Continue as planned. Discussed critical need for smoking cessation. Signed by: Hira Daniel 01/21/2023 3:35:22 PM
== END 2023-01-26 23:59 | disposition home or self-care (01) ==
PROVIDERS: PCP Nurse Practitioner; Visit Provider Specialist
DX: Z51.0 Encounter for antineoplastic radiation therapy (principal); C09.8 Malignant neoplasm of overlapping sites of tonsil
CPT/HCPCS: 77014; 77336; 77386; 77417; 77427; 99024

== ENCOUNTER 2023-02-05 14:31 | Oncology outpatient (recurring) (ONCR) | payer MEDICARE, SELFPAY ==
--- NOTE | 2023-01-27 16:48 | ONCRAD TMN_ITS ---
Radiation Oncology Weekly Treatment Management Patient: Fransico Abdi> MR#: [id number] : 1955> Attending Physician: Willem Sargent Date of Service: 01/27/2023 Referring Physician(s) : Diagnosis: Oropharynx, tonsil, right, p16 positive squamous cell carcinoma, stage T2N1M0 Radiotherapy to date: Course: Head Neck 2022, Treatment Site: [id number], Ref. ID: [id number], Energy: 6X, Dose/Fx (cGy): 200, #Fx: , Dose Correction (cGy): 0, Total Dose (cGy): 3,600, Start Date: 01/01/2023, Elapsed Days: Reason for visit: The patient is being seen today as part of his regularly scheduled weekly on treatment visits to assess for acute toxicities from radiotherapy. Review of Systems: Mr. Bateman is receiving radiation without concomitant chemotherapy. He is doing reasonably well. He has a soft diet because of his full mouth extraction. He is looking forward to getting teeth made after treatment is done. He is using Magic mouthwash sparingly, though he has been told he can use it on a regular basis. He is not doing any salt and soda rinses. Pain is not a big issue for him. He does have altered taste and mild dry mouth. Vital Signs: Performed on 01/27/2023 3:14 PM BMI - 19.615 kg/m2, Height - 68 in, Weight - 129 lbs, Temperature - 97 f, Pulse - 67 /min, Respiration - 18 /min, O2 Sat - 99 %, Pain - 1, Fatigue - 0 and BP - 102/ 67 mm(hg). Physical Exam: Minimal skin reaction in the neck. No lymphadenopathy detected. In the oral cavity mucous membranes are moist. He has moderate mucositis involving the right soft palate and tonsillar area. No evidence of yeast. The gingiva have healed well. Imaging: Radiation therapy imaging related to accurate target localization (i.e. KV, MV and CBCT) was reviewed. Appropriate changes, if any, were made to ensure treatment accuracy. Plan: Continue treatment according to plan. I recommended that he wait 3 months after completing radiation before being fitted for dentures. I told him he would probably get a better fit that way. I recommended that he use salt and soda rinses 3-6 times per day. Also encouraged him to use the Magic mouthwash before meals and as needed. His skin reaction is minimal and he does not need any ointment. Signed by: Willem Sargent 01/27/2023 4:47:20 PM
--- NOTE | 2023-02-03 15:59 | ONCRAD TMN_ITS ---
Radiation Oncology Weekly Treatment Management Patient: Jin Bateman MR#: [id number] : 1955 Attending Physician: Oh Christian Date of Service: 02/03/2023 Referring Physician(s) : Diagnosis: Oropharynx, tonsil, right, p16 positive squamous cell carcinoma, stage T2N1M0 Radiotherapy to date: Course: Head Neck 2022, Treatment Site: [id number], Ref. ID: [id number], Energy: 6X, Dose/Fx (cGy): 200, #Fx: , Dose Correction (cGy): 0, Total Dose (cGy): 4,200, Start Date: 01/01/2023, Elapsed Days: 33 Reason for visit: The patient is being seen today as part of their regularly scheduled weekly on treatment visits to assess for acute toxicities from radiotherapy. Review of Systems: Patient continues with good, chemotherapy and radiation. He is using Magic mouthwash and skin moisturizers as needed. He has altered taste and continued dry mouth. Vital Signs: Performed on 02/03/2023 2:34 PM BMI - 19.615 kg/m2, Height - 68 in, Weight - 129.0 lbs, Temperature - 96.9 f, Pulse - 62 /min, Respiration - 16 /min, O2 Sat - 98 %, Pain - 1, Fatigue - 0 and BP - 105/ 64 mm(hg)(/low). Physical Exam: Alert and oriented male appearing his stated age. He has mild erythema of the neck but no moist desquamation. Oral mucosa shows superficial ulceration on the posterior pharyngeal wall. No thrush. Patient ambulatory without assistance. Imaging: Radiation therapy imaging related to accurate target localization (i.e. KV, MV and CBCT) was reviewed. Appropriate changes, if any, were made to ensure treatment accuracy. Plan: Continue prescribed radiation therapy. Patient has been instructed to continue with Magic mouthwash and rinse with salt water baking soda as needed. He has been encouraged to use the skin moisturizers daily. Signed by: Oh Christian 02/03/2023 3:58:23 PM
== END 2023-02-05 23:59 | disposition home or self-care (01) ==
PROVIDERS: PCP Nurse Practitioner; Visit Provider Radiology Radiation Oncology
DX: Z51.0 Encounter for antineoplastic radiation therapy (principal); C09.8 Malignant neoplasm of overlapping sites of tonsil
CPT/HCPCS: 77386; 99024

== ENCOUNTER 2023-02-16 14:25 | Oncology outpatient (recurring) (ONCR) | payer MEDICARE, SELFPAY ==
--- NOTE | 2023-02-11 08:46 | ONCRAD TMN_ITS ---
Radiation Oncology Weekly Treatment Management Patient: Fransico Abdi> MR#: [id number] : 1955> Attending Physician: Dr. Karely Johnson Date of Service: 02/10/2023 Fractions: 26 out of 30 Referring Physician(s) : Diagnosis: Radiotherapy to date: Course: Head Neck 2022, Treatment Site: [id number], Ref. ID: [id number], Energy: 6X, Dose/Fx (cGy): 200, #Fx: , Dose Correction (cGy): 0, Total Dose (cGy): 5,200, Start Date: 01/01/2023, Elapsed Days: 40 Reason for visit: The patient is being seen today as part of their regularly scheduled weekly on treatment visits to assess for acute toxicities from radiotherapy. Review of Systems: Patient has developed upper skin reaction. He has hyperpigmentation which has healed leaving a dry desquamation. The underlying skin is erythematous but not moist. Vital Signs: Performed on 02/10/2023 2:58 PM BMI - 19.341 kg/m2, Height - 68 in, Weight - 127.2 lbs, Temperature - 96.5 f, Pulse - 64 /min, Respiration - 16 /min, O2 Sat - 98 %, Pain - 1, Fatigue - 0 and BP - 112/ 61 mm(hg)(/low). Physical Exam: On exam his skin is hyperpigmented and a portion of that area has peeled leaving a dry desquamation with erythematous skin beneath. There is no moist desquamation. Imaging: Radiation therapy imaging related to accurate target localization (i.e. KV, MV and CBCT) was reviewed. Appropriate changes, if any, were made to ensure treatment accuracy. Plan: At this point we talked about him continuing to use the cream 3 times a day. He only has 4 treatments remaining and I encouraged him to just finish these and then he can begin to heal completely. He was in agreement. We will continue with his treatments as planned Signed by: Dr. Karely Johnson 02/11/2023 8:45:37 AM
--- NOTE | 2023-02-17 14:26 | N.ONRD TS_ITS ---
Radiation Oncology Treatment Summary Patient: Fransico>Lynda MR#: [id number] : 1955> Age: 67> Sex: Male Dictated by: Dr. Karely Johnson Date of Service: 02/16/2023 Referring Physician(s) : Diagnosis: Radiotherapy to Date: Course: Head Neck 2022, Treatment Site: [id number], Ref. ID: [id number], Energy: 6X, Dose/Fx (cGy): 200, #Fx: 30 / 30, Dose Correction (cGy): 0, Total Dose (cGy): 6,000, Start Date: 01/01/2023, End Date: 02/16/2023, Elapsed Days: 46 Clinical Summary: The patient tolerated RT well. Plan: End of treatment today. Continue on the above medication until the skin reaction resolves. Follow up in one month. Signed by: Dr. Karely Johnson>02/17/2023 2:24:54 PM <<Signature on File>>
== END 2023-03-08 23:59 | disposition home or self-care (01) ==
PROVIDERS: PCP Nurse Practitioner; Visit Provider Radiology Radiation Oncology
DX: Z51.0 Encounter for antineoplastic radiation therapy (principal); C09.8 Malignant neoplasm of overlapping sites of tonsil
CPT/HCPCS: 77014; 77336; 77386; 99024

== ENCOUNTER 2023-05-19 09:25 | Outpatient (CLI) | payer MEDICARE, SELFPAY ==
--- NOTE | 2023-05-19 10:30 | PETR_ITS ---
PROCEDURE INFORMATION: Exam: PET/CT Skull Base to Mid-thigh Exam date and time: 05/19/2023 10:27 AM Age: 68 years old Clinical indication: Condition or disease; Primary cancer: Cancer of tonsil, S/P or and xrt LABS AND CLINICAL REPORTS: Glucose: 102 mg/dl Treatment strategy for malignancy (PET staging): Restaging (PS) TECHNIQUE: Imaging protocol: Following at least four-hour fasting and following the injection of radiopharmaceutical, low dose CT images were obtained. Then, PET images were obtained. Attenuation corrected images were constructed using the CT scan. Fused images of PET and CT were reviewed. The standardized uptake values (SUV) reported below are maximum values within a region of interest, expressed in gm/ml. Exam includes orbital meatal line to mid-thigh. Radiopharmaceutical: 12.22 mCi F-18 FDG (Fluorodeoxyglucose), IV. Time of imaging post radiopharmaceutical administration: 1 hour Injection site: Left antecubital [id number] 07/26/2022 9:46 AM FINDINGS: Brain: Visualized brain has normal physiologic uptake. Pharynx: Soft tissue thickening of the posterior pharyngeal wall of the hypopharynx with some asymmetric thickening on the right. There is moderate FDG uptake in this region, slightly more elevated on the right within max SUV of 3.0. Right palatine tonsil mass seen on prior study not appreciated on current exam. Larynx: No abnormal uptake. Lungs, pleura and trachea: Emphysematous changes of the lungs. No abnormal uptake. Heart: Normal physiologic uptake. Mediastinal space: No abnormal uptake. Liver: No abnormal uptake. Gallbladder and bile ducts: Calcified debris noted in the gallbladder. No abnormal uptake. Pancreas: No abnormal uptake. Spleen: No abnormal uptake. Adrenal glands: No abnormal uptake. Kidneys and ureters: Normal physiologic uptake. Stomach and bowel: No abnormal uptake. Vasculature: No abnormal uptake. Lymph nodes: No abnormal uptake. No lymphadenopathy in the head, neck, chest, abdomen, pelvis, and extremities. Bones/joints: No abnormal uptake in the visualized axial and appendicular skeleton. Soft tissues: No abnormal uptake in the visualized head, neck, chest, abdomen, pelvis, and extremities. Other findings: Uptake in the tongue suspected to relate to motion. PET[facility] [id number] IMPRESSION: 1. Soft tissue thickening of the posterior pharyngeal wall of the hypopharynx which demonstrates some asymmetric wall thickening of the right. Moderate FDG uptake in this region with a max SUV of 3.0. Findings are nonspecific and while this could represent post treatment change, consider further evaluation with direct visual inspection or attention on any follow-up imaging. 2. No distant FDG avid metastasis is seen elsewhere in the body.
== END 2023-05-19 09:26 | disposition home or self-care (01) ==
LOC: RAD 09:25
PROVIDERS: PCP Nurse Practitioner; Visit Provider Radiology Radiation Oncology
DX: C09.9 Malignant neoplasm of tonsil, unspecified (principal)
CPT/HCPCS: 78815; A9552

== ENCOUNTER 2023-05-22 08:58 | Oncology outpatient (recurring) (ONCR) | payer MEDICARE, SELFPAY ==
--- NOTE | 2023-05-22 09:58 | ONCRAD EPV_ITS ---
Radiation Oncology Established Patient Visit Patient: Jin Bateman [id number] : 1955 Age: 68 Sex: Male Dictated by: Oh Christian Date of Service: 05/22/2023 Referring Physician(s) : Diagnosis: Radiotherapy to Date: Course: Head Neck 2022, Treatment Site: [id number], Ref. ID: [id number], Energy: 6X, Dose/Fx (cGy): 200, #Fx: 30 / 30, Dose Correction (cGy): 0 Total Dose Delivered (cGy): 6,000, Start Date: 01/01/2023, End Date: 02/16/2023, Elapsed Days: 46 Current History: Patient is seen in follow-up today approximately 4 months after completion of postoperative external beam radiation therapy of 60 Andrews at 200 cGy per fraction over 30 fractions for treatment of a right tonsillar carcinoma with 1 lymph node positive. He notes thickened secretions and occasional difficulty swallowing. He is in the process of obtaining dentures. He currently eats mostly oatmeal and eggs. His weight remains stable and he reports that he is trying to increase his physical activity. He continues to smoke but indicates he is trying to quit. He indicates that he and his looked at the PET/CT report on the patient portal and he suspects that the swallowing is secondary to scarring from his previous 2 surgeries. He has atrial fibrillation and takes aspirin daily and is being followed by his flake drier. He indicates that he has an appointment with a new urologist closer to home as Dr. Pena has retired. Current Medications: Allergies: Current Complaints / Review of Systems: . Vital Signs: Performed on 05/22/2023 9:07 AM BMI - 19.645 kg/m2, Height - 68 in, Weight - 129.2 lbs, Temperature - 97.3 f, Pulse - 70 /min, Respiration - 16 /min, O2 Sat - 99 %, Pain - 0, Fatigue - 2 and BP - 110/ 61 mm(hg)(/low). Physical Exam: General: Alert and oriented x 3. No acute distress. HEENT: Normocephalic, atraumatic. Extraocular Movements Intact: Pupils Equal, Round, Reactive to Light and Accommodation: Sclerae anicteric. Oral cavity is clear without lesions, masses or ulcers. Patient is edentulous. NECK: Supple without supraclavicular or jugular lymphadenopathy. Skin in the treatment area is intact without erythema or desquamation. LUNGS: Clear to auscultation bilaterally without rales, rhonchi or wheeze. HEART: Regular rate and rhythm, normal S1 and S2 without murmur, gallop or rub. MUSCULOSKELETAL: No tenderness or percussion pain over the axial skeleton, scapulae or pelvis. ABDOMEN: Soft, nontender, nondistended without masses or organomegaly. Bowell sounds are present. EXTREMITIES: No peripheral edema is identified. Limited motor and sensory examination are grossly intact and symmetric bilaterally. NEUROLOGIC: Cranial nerves II ???XII are grossly intact. Normal sensation, strength 5/5 in all extremities, normal gait, no ataxia. Performance Status: Lab: None pending. Pathology: Imaging: See HPI Impression: The patient has recovered well from the acute effects of his external beam radiation therapy. He has the usual and expected dry mouth and occasional difficulty swallowing. The PET/CT images were reviewed with the patient and his . A follow-up PET/CT will be ordered in approximately 6 months with a follow-up visit after the PET/CT. The patient has been instructed to contact his ENT physician if he notices worsening of his swallowing prior to the scheduled follow-up. He has been instructed to contact our office if he has questions or concerns regarding his radiation therapy. Signed by: 05/22/2023 9:55:59 AM <<Signature on File>> Time spent with patient: 30 minutes CPT Code: CPT Code:
== END 2023-06-07 23:59 | disposition home or self-care (01) ==
PROVIDERS: PCP Nurse Practitioner; Visit Provider Radiology Radiation Oncology
DX: C09.9 Malignant neoplasm of tonsil, unspecified (principal); I48.91 Unspecified atrial fibrillation; R13.10 Dysphagia, unspecified; Z79.82 Long term (current) use of aspirin; R68.2 Dry mouth, unspecified; C77.9 Secondary and unspecified malignant neoplasm of lymph node, unspecified
CPT/HCPCS: 99214

== ENCOUNTER → 2023-07-17 09:45 | Outpatient (BNVA) | payer MEDICARE, SELFPAY | PROVIDERS: PCP Nurse Practitioner; Visit Provider Nurse Practitioner | DX: R97.20 Elevated prostate specific antigen [PSA] (principal) | CPT/HCPCS: 84153 ==

== ENCOUNTER 2023-10-27 07:39 | Outpatient (CLI) | payer MEDICARE, SELFPAY ==
--- NOTE | 2023-10-27 08:00 | PETR_ITS ---
PROCEDURE INFORMATION: Exam: PET/CT Skull Base to Mid-thigh Exam date and time: 10/27/2023 8:54 AM Age: 68 years old Clinical indication: Condition or disease; Primary cancer: Malignant neoplasm of tonsil, metastatic squamous cell CA; Prior surgery; Surgery date: 6+ months; Additional info: Metastatic squamous cell carcinoma LABS AND CLINICAL REPORTS: Glucose: 103 mg/dl Treatment strategy for malignancy (PET staging): Restaging (PS) TECHNIQUE: Imaging protocol: Following at least four-hour fasting and following the injection of radiopharmaceutical, low dose CT images were obtained. Then, PET images were obtained. Attenuation corrected images were constructed using the CT scan. Fused images of PET and CT were reviewed. The standardized uptake values (SUV) reported below are maximum values within a region of interest, expressed in gm/ml. Exam includes orbital meatal line to mid-thigh. Radiopharmaceutical: 12.1 mCi F-18 FDG (Fluorodeoxyglucose), IV. Time of imaging post radiopharmaceutical administration: 1 hour Injection site: Right antecubital vein COMPARISON: PET -CT 05/19/2023 and 07/26/2022 FINDINGS: Brain: Visualized brain has normal physiologic uptake. Pharynx: No abnormal uptake. Larynx: Bilateral symmetric uptake is benign. Lungs, pleura and trachea: No abnormal uptake. No suspicious lung nodules or masses. Stable 5 mm calcified granuloma in the left upper lobe. Mild centrilobular emphysema. No pleural effusion. Heart: Normal physiologic uptake. There is no cardiomegaly. No coronary artery calcification is visualized. There is no pericardial effusion. Mediastinal space: See below in lymph nodes . Liver: No abnormal uptake. Gallbladder and biliary ducts: No abnormal uptake. Small calcified gallstones in the gallbladder. Pancreas: No abnormal uptake. Spleen: No abnormal uptake. No splenomegaly. Adrenal glands: No abnormal uptake. No nodules. Kidneys and ureters: Normal physiologic uptake. No hydronephrosis. Stomach and bowel: No abnormal uptake. Stable diverticulosis of the sigmoid colon. Stable non incarcerated right inguinal hernia containing a the loop of ileum. Intraperitoneal and retroperitoneal spaces: No abnormal uptake. No ascites. Bladder: Normal physiologic uptake. Reproductive: About 1.2 cm focus of increased uptake in the left lateral peripheral zone of the prostate in the midgland (series 301, image 257) currently measures 5.8 SUV versus 3.6 SUV on 05/19/2023 and 2.9 SUV on 07/26/2022. Vasculature: No abnormal uptake. No aortic aneurysm. Lymph nodes: Increased uptake of 4.7 SUV within normal size right paratracheal lymph node measuring 6 mm in the short axis may be benign reactive in nature. No lymphadenopathy in the head, neck, chest, abdomen, pelvis, and extremities. Skeleton: No abnormal uptake in the visualized axial and appendicular skeleton. Soft tissues: Linear increased uptake along the medial aspect of the right arm toward the axilla represents benign finding of lymphatic drainage from the injection site. Benign bilateral symmetric uptake in normal size longus coli muscles. PET/PET skull to thigh SUBS [id number] IMPRESSION: 1. Continuous complete metabolic response in the site of the primary malignancy in the right tonsil. No abnormal radiotracer uptake concerning for local recurrence or metastatic disease in the neck. Increased uptake in a single normal size right upper mediastinal paratracheal lymph node is not entirely specific, may be benign reactive in nature. No other findings concerning for distant metastatic disease. There is FDG avid lymphatic drainage in the right arm due to extravasation at the injection site. 2. Progressive small focal uptake in the left lateral peripheral zone of the prostate may represent primary malignancy. No FDG avid pelvic lymphadenopathy.
== END 2023-10-27 07:40 | disposition home or self-care (01) ==
LOC: RAD 07:39
PROVIDERS: PCP Nurse Practitioner; Visit Provider Radiology Radiation Oncology
DX: C09.9 Malignant neoplasm of tonsil, unspecified (principal); J43.2 Centrilobular emphysema
CPT/HCPCS: 78815; A9552

== ENCOUNTER 2023-11-02 08:36 | Oncology outpatient (recurring) (ONCR) | payer MEDICARE, SELFPAY ==
--- NOTE | 2023-11-02 09:27 | ONCRAD EPV_ITS ---
Radiation Oncology Established Patient Visit Patient: Fransico Abdi [id number] : 1955> Age: 68> Sex: Male> Dictated by: Dr. Karely Johnson Date of Service: 11/02/2023 Referring Physician(s) : Diagnosis: Radiotherapy to Date: Course: Head Neck 2022, Treatment Site: [id number], Ref. ID: [id number], Energy: 6X, Dose/Fx (cGy): 200, #Fx: 30 / 30, Dose Correction (cGy): 0, Total Dose Delivered (cGy): 6,000, Start Date: 01/01/2023, End Date: 02/16/2023, Elapsed Days: 46 Current History: Patient returns today for the results of his PET scan. It has been 8 months since he completed treatments for a tonsillar cancer. His PET scan did not show any evidence of recurrence in the tonsillar area or head neck area. It did note uptake in the prostate which was new. There was also a single normal-sized right upper mediastinal paratracheal lymph node which was nonspecific and felt to be reactive in nature. Subjectively he is doing well. He has no trouble swallowing. He is in good spirits. His energy level is good. Current Medications: Allergies: Current Complaints / Review of Systems: . Vital Signs: Performed on 11/02/2023 9:03 AM BMI - 20.953 kg/m2, Height - 68 in, Weight - 137.8 lbs, Temperature - 97.1 f, Pulse - 76 /min, Respiration - 18 /min, O2 Sat - 98 %, Pain - 0, Fatigue - 0 and BP - 113/ 69 mm(hg). Physical Exam: General: Alert and oriented x 3. No acute distress. HEENT: Normocephalic, atraumatic. Extraocular Movements Intact: Pupils Equal, Round, Reactive to light NECK: Supple without supraclavicular or jugular lymphadenopathy. LUNGS: Respiratory rate is regular nonlabored. HEART: Regular rate and rhythm, ABDOMEN: Abdomen is flat. Patient has minimal adipose tissue EXTREMITIES: No peripheral edema is identified. Limited motor and sensory examination are grossly intact and symmetric bilaterally. NEUROLOGIC alert and orient x 3. Gait and speech within normal limits. Performance Status: 100 Lab: None pending. Pathology: Imaging: See HPI Impression: Head neck malignancy now 8 months from completion of treatment. Plan: I reviewed the results of his PET scan. We talked about the uptake in his prostate which is new. He has been followed for nearly a decade with serial PSAs which has slowly been rising. His most recent PSA was in July and it was 6.3. The 1 previously was 6.5 the year before. At this point we will go ahead and check his PSA today along with his thyroid functions. He does have an appointment with Dr. Merino in January. If his PSA has become elevated we will see if we can get his appointment moved up. He does think that he probably has prostate cancer. His grandfather and his brother both had prostate cancer. At this point we will see him back in 6 months or he will call if any problems arise in the interim. Signed by: 11/02/2023 9:25:55 AM <<Signature on File>> Time spent with patient: 20 CPT Code: CPT Code:
[2023-11-02 10:37] LABS: T3 Free 2.8 PG/ML (2.0-4.4); Thyroid Stimulating Hormone 2.07 uIU/mL (0.27-4.20)
[2023-11-03 08:00] LABS: T3 Total 85 ng/dL (76-181)
== END 2023-11-07 23:55 | disposition home or self-care (01) ==
PROVIDERS: PCP Nurse Practitioner; Visit Provider Radiology Radiation Oncology
DX: Z08 Encounter for follow-up examination after completed treatment for malignant neoplasm (principal); Z85.818 Personal history of malignant neoplasm of other sites of lip, oral cavity, and pharynx; R97.20 Elevated prostate specific antigen [PSA]; Z80.42 Family history of malignant neoplasm of prostate; Z92.3 Personal history of irradiation
CPT/HCPCS: 36591; 84153; 84436; 84443; 84480; 84481; 99214

== ENCOUNTER → 2024-01-13 09:17 | Outpatient (BNVA) | payer MEDICARE, SELFPAY | PROVIDERS: PCP Nurse Practitioner; Visit Provider Nurse Practitioner | DX: R97.20 Elevated prostate specific antigen [PSA] (principal) | CPT/HCPCS: 84153 ==

== ENCOUNTER 2024-05-06 15:05 | Emergency (ER) | payer MEDICARE, SELFPAY ==
[2024-05-06 15:23] VITALS: BP 126/79; PULSE 91; RESP 18; TEMP 36.4; O2SAT 92; BMI 21.2
[2024-05-06 18:00] VITALS: BP 130/90; PULSE 95; O2SAT 96
--- NOTE | 2024-05-06 18:43 | W.ED.MALEGU ---
HPI - Male Genitourinary General: Chief complaint: Urogenital-Male Stated complaint: had a prostate biopsy this morning, bleeding, weak Time Seen by Provider: 05/06/24 16:36 History of Present Illness: This patient is a 69-year-old white male who presents to the emergency department with gross hematuria. Patient states he just had a prostate biopsy done this morning and [place]. He was concerned about the amount of bleeding. He is having some discomfort. The only blood thinner the patient takes is a baby aspirin. Associated symptoms: Reports hematuria Related Data Home Medications ?Medication ?Instructions ?Recorded ?Confirmed cholecalciferol (vitamin D3) 50 50 mcg PO DAILY 07/19/19 11/13/22 mcg (2,000 unit) capsule coenzyme [id number] E 100 mg-100 1 cap PO DAILY 07/19/19 11/13/22 unit capsule ascorbic acid (vitamin C) 500 mg 500 mg PO DAILY 07/12/22 11/13/22 tablet (Vitamin C) diltiazem HCl 30 mg tablet See Rx Instructions PO DAILY 11/13/22 (Cardizem) Previous Rx's ?Medication ?Instructions ?Recorded albuterol sulfate 90 mcg/actuation 2 puff inhalation QID PRN 06/17/22 aerosol inhaler (Ventolin HFA) shortness of breath or wheezing #6.7 grams promethazine-DM 6.25 mg-15 mg/5 mL 5 - 10 ml PO Q6H PRN cough #240 mL 06/17/22 oral syrup tamsulosin 0.4 mg capsule 0.8 mg (2 x 0.4 mg) PO DAILY #180 08/05/22 caps fluconazole 100 mg tablet 100 mg PO .COMPLEX #8 tabs 01/15/23 (Diflucan) lidocaine HCl 2 % mucosal solution 1 applic mucous membrane TID PRN 01/15/23 (Lidocaine Viscous) pain #80 mL finasteride 5 mg tablet 5 mg PO DAILY enlarged prostate 10/01/23 #30 tabs Allergies Allergy/AdvReac Type Severity Reaction Status Date / Time codeine Allergy UNKNOWN Verified 11/13/22 13:19 hydrocodone Allergy UNKNOWN Verified 11/13/22 13:19 metronidazole (From Flagyl) Allergy UNKNOWN Verified 11/13/22 13:19 naproxen (From Naprosyn) Allergy UNKNOWN Verified 11/13/22 13:19 Review of Systems General: Reports: 10 or more systems reviewed and unremarkable except in HPI and below : Reports: hematuria PFSH ED PFSH: Medical History Aspiration pneumonia BPH with obstruction/lower urinary tract symptoms Degenerative spinal arthritis Elevated PSA Erectile dysfunction History of basal cell carcinoma of skin Leukocytosis Mixed hyperlipidemia Neoplasm of tonsil Peyronie's disease Vitamin D deficiency Surgical History H/O radical excision of skin lesion FACE Hx of circumcision Hx of tonsillectomy (07/10/22) Right tonsillectomy with right cervical lymphadenectomy Family History Father , AT AGE 77 Cancer LUNG Mother CAD (coronary artery disease) Social History Smoking and tobacco/nicotine status: current every day tobacco/nicotine user cigarettes [ Other cigarette details: Smoked x 50 years] Alcohol intake: never Substance/Drug Use: unknown Marital status: Current occupational status: retired Physical Exam Const: COMMON NORMALS: no acute distress, patient oriented x3 and no limitations GENERAL APPEARANCE: cooperative and comfortable HENMT: COMMON NORMALS: normocephalic, atraumatic, Normal nasal mucous membranes and turbinates present, moist oral mucous membranes and oropharynx normal HEAD & SCALP: normal to inspection, normocephalic and atraumatic FACE & SINUS: normal facial exam NOSE: Normal nasal mucous membranes and turbinates present Eye: COMMON NORMALS: Equal, round and reactive pupils present, EOMs intact bilaterally and conjunctivae normal GENERAL EYE: appearance normal, both eyes and all related structures CONJUNCTIVA: Yes conjunctivae normal PUPIL: Yes Equal, round and reactive pupils present Neck/C-Spine: COMMON NORMALS: supple and no JVD Chest: COMMONS NORMALS: normal inspection of the chest Resp: COMMON NORMALS: normal respiratory effort and clear to auscultation bilaterally AUSCULTATION: clear to auscultation bilaterally Cardio: COMMON NORMALS: no JVD, regular rate, regular rhythm, No gallops present (Cardio), No murmurs present (Cardio) and No rub (Cardio) RATE: regular rate RHYTHM: regular rhythm GI: COMMON NORMALS: Normal to inspection, nondistended, normoactive bowel sounds present, Soft to palpation and non-tender AUSCULTATION: Yes normoactive bowel sounds PALPATION: Yes Soft to palpation : COMMON NORMALS: Yes no CVA tenderness BLADDER/KIDNEY EXAM: Yes no CVA tenderness Back/Pelvis: COMMON NORMALS: no CVA tenderness and thoracic and lumbar spine normal to inspection Extremity: COMMON NORMALS: normal to inspection Neuro: COMMON NORMALS: patient oriented x3 and CN's II-XII intact bilaterally Psych: COMMON NORMALS: mental status grossly normal, Normal thought process present and cooperative THOUGHT PROCESS: Normal thought process present Skin: COMMON NORMALS: no rashes or lesions noted, turgor normal and no jaundice GENERAL SKIN EXAM: no rashes or lesions noted and turgor normal Course Vital Signs: Vital signs: Vital Signs Temperature 97.6 F 05/06/24 15:23 Pulse Rate 95 05/06/24 18:00 Respiratory Rate 18 05/06/24 15:23 Blood Pressure 130/90 05/06/24 18:00 Pulse Oximetry 96 05/06/24 18:00 Oxygen Delivery Me thod Room Air 05/06/24 18:00 MDM - Male Medical Decision Making Bladder scan revealed 364 cc of urine in the bladder. Patient is able to urinate. The bleeding is slowing down. I recommended he contact his urologist with any further concerns. If he is unable to pass urine recommended he return to the emergency department at which time we could place a [place] catheter but he does not need 1 at this point. Patient was discharged in stable condition. No radiology studies performed this visit Discharge Plan Discharge Patient Disposition: Home Clinical Impression: Hx of prostate biopsy Hematuria Qualifiers: Hematuria type: gross Qualified Code(s): R31.0 - Gross hematuria Condition: Stable Prescriptions: No Action coenzyme [id number] E 100-100 mg-unit capsule 1 cap PO DAILY cholecalciferol (vitamin D3) 50 mcg (2,000 unit) capsule 50 mcg PO DAILY tamsulosin 0.4 mg capsule 0.8 mg PO DAILY Qty: 180 3RF promethazine-DM 6.25-15 mg/5 mL syrup 5 - 10 ml PO Q6H PRN (Reason: cough) Qty: 240 0RF albuterol sulfate [Ventolin HFA] 90 mcg/actuation HFA aerosol inhaler 2 puff inhalation QID PRN (Reason: shortness of breath or wheezing) Qty: 6.7 0RF diltiazem HCl [Cardizem] 30 mg tablet See Rx Instructions PO DAILY Rx Instructions: Dosage unknown orally daily; fluconazole [Diflucan] 100 mg tablet 100 mg PO .COMPLEX Qty: 8 1RF Rx Instructions: 2 tabs on the first day, then 1 tablet daily lidocaine HCl [Lidocaine Viscous] 2 % solution 1 applic mucous membrane TID PRN (Reason: pain) Qty: 80 0RF Rx Instructions: add Maalox 80ml, benadryl 80ml to make mouthwash swish and swallow finasteride 5 mg tablet 5 mg PO DAILY MDD 5 mg Qty: 30 6RF Vitamin C 500 mg Tablet 500 mg PO DAILY Discharge Orders: Discharge ED (Routine); Ordered 05/06/24 Ordered By: Mendez Trammell Referrals: Kath Pitt, ALINA-C [Primary Care Provider] - Activity Restrictions/Additional Instructions: Contact your urologist with any further concerns. If you feel like you cannot pass urine return to the emergency department otherwise follow-up with your urologist for ongoing management. Print Language: French Coding Level of Care Code ED Twx Operator for Zaheer Ha
[2024-05-06 19:03] VITALS: BP 130/82; PULSE 94; O2SAT 94
== END 2024-05-06 19:05 | disposition home or self-care (01) ==
PROVIDERS: Emergency Provider Emergency Medicine; PCP Nurse Practitioner
DX: R31.0 Gross hematuria (principal); Z98.890 Other specified postprocedural states; F17.210 Nicotine dependence, cigarettes, uncomplicated; E78.2 Mixed hyperlipidemia
CPT/HCPCS: 51798; 99283

== ENCOUNTER 2024-05-23 09:07 | Oncology outpatient (recurring) (ONCR) | payer MEDICARE, SELFPAY ==
[2024-05-17] MEDS: iohexol 350 mg/mL 500 mL Btl (per mL) IV (13:25)
--- NOTE | 2024-05-17 13:45 | CT_ITS ---
WS: [id number] CT NECK TECHNIQUE: Contrast-enhanced CT of the neck with coronal and sagittal reformatted images. CLINICAL INFORMATION: tonsil cancer COMPARISON: PET/CT 10/27/2023 DLP: 135.[address] scans at [facility] use at least one of these dose optimization techniques: automated exposure control; mA and/or kV adjustment per patient size (includes targeted exams where dose is matched to clinical indication); or iterative reconstruction. FINDINGS: Advanced chronic emphysematous changes in the lung apices. Retention cyst LEFT maxillary sinus. Mild mucosal thickening in the paranasal sinuses. Mastoid air cells are well aerated. Submandibular glands are normal. Parotid glands are normal. Normal posterior nasopharynx. Normal thyroid gland. No cervical lymphadenopathy. Prior postoperative changes base of tongue. . No evidence of supraglottic or glottic mass. Slight ballooning of the RIGHT laryngeal ventricle. Recommend correlation for vocal cord paralysis. Moderate to advanced spondylitic changes cervical spine. Moderate to severe central canal stenosis C5-C6. CT/CT neck w con* [id number]: 1. No CT evidence of residual or recurrent enhancing disease. 2. Slight ballooning of the RIGHT laryngeal ventricle. Recommend correlation f or RIGHT vocal cord paralysis.
--- NOTE | 2024-05-23 11:01 | ONCRAD EPV_ITS ---
Radiation Oncology Established Patient Visit Patient: Jin Bateman [id number] : 1955 Age: 69 Sex: Male Dictated by: Dr. Karely Johnson Date of Service: 05/23/2024 Referring Physician(s) : Diagnosis: Squamous cell carcinoma of the tonsil Radiotherapy to Date: Course: Head Neck 2022, Treatment Site: [id number], Ref. ID: [id number], Energy: 6X, Dose/Fx (cGy): 200, #Fx: 30 / 30, Dose Correction (cGy): 0, Total Dose Delivered (cGy): 6,000, Start Date: 01/01/2023, End Date: 02/16/2023, Elapsed Days: 46 Current History: Patient returns for his year and a half follow-up from completing treatments for head neck malignancy. His CT scan was stable with no abnormalities. He has in the interim been diagnosed with prostate cancer and he is awaiting appointments and workup for this. He said he was told he would get a bone scan but no one is called. Current Medications: Allergies: Current Complaints / Review of Systems: . Vital Signs: Performed on 05/23/2024 9:11 AM Height - 68 in, Weight - 131.4 lbs, BMI - 19.979 kg/m2, Temperature - 96.8 f, Pulse - 71 /min, Respiration - 17 /min, O2 Sat - 99 %, Pain - 0, Fatigue - 0 and BP - 135/ 79 mm(hg). Physical Exam: General: Alert and oriented x 3. No acute distress. HEENT: Normocephalic, atraumatic. Extraocular Movements Intact: Pupils Equal, Round, Reactive to Light and Accommodation: Sclerae anicteric. Oral cavity is clear without lesions, masses or ulcers. NECK: Supple without supraclavicular or jugular lymphadenopathy. LUNGS: Respiratory rate is regular nonlabored. HEART: Regular rate and rhythm, NEUROLOGIC: Alert and orient x 3. Gait and speech within normal limits. Performance Status: 100 Lab: None pending. Pathology: Imaging: See HPI Impression: Squamous of carcinoma of the tonsil status post surgery and postop radiation now a year and a half out Plan: At this point is doing well from his head neck malignancy. Unfortunate he has been diagnosed with prostate cancer. He is visiting with Dr. Merino mid June to go over results of a bone scan. Will go ahead and get his bone scan ordered here and see if we get that done this week. Will otherwise see him back in 6 months or sooner if we can be of help with his prostate cancer. Once we get the reports we will make sure that gets faxed to Dr. Merino's office. Signed by: 05/23/2024 11:00:04 AM <<Signature on File>> Time spent with patient:20 CPT Code: * CPT Code: *
== END 2024-06-06 23:59 | disposition home or self-care (01) ==
PROVIDERS: PCP Nurse Practitioner; Visit Provider Radiology Radiation Oncology
DX: Z08 Encounter for follow-up examination after completed treatment for malignant neoplasm (principal); C09.9 Malignant neoplasm of tonsil, unspecified; Z92.3 Personal history of irradiation; C61 Malignant neoplasm of prostate
CPT/HCPCS: 70491; 99213

== ENCOUNTER 2024-07-06 08:40 | Oncology outpatient (recurring) (ONCR) | payer MEDICARE, SELFPAY ==
--- NOTE | 2024-06-08 08:45 | NM_ITS ---
WS: [id number] NUCLEAR MEDICINE BONE SCAN Radiopharmaceutical: 25.8 Tc-99m MDP mCi IV Injection site: Antecubital Postinjection imaging delay: 1 hr CLINICAL INFORMATION: prostate ca COMPARISON: None. FINDINGS: Bone lesions: There are no osseous lesions suspicious for metastatic disease. Soft tissue contours: Normal. Kidneys: Normal. Other findings: Degenerative arthritis AC joints. NM/NM bone scan whole body* [id number] IMPRESSION: No evidence of osseous metastatic disease.
--- NOTE | 2024-07-06 13:54 | ONCRAD EPV_ITS ---
Radiation Oncology Established Patient Visit Patient: Fransico Abdi [id number] : 1955> Age: 69> Sex: Male> Dictated by: Goran Erazo DO/JAD/LEIGH Date of Service: 07/06/2024 Referring Physician(s) : Chuy Merino MD- Urology General Surgery???MAIK PIÑA MD Diagnosis: LEFT SIDED PROSTATE CANCER, GROUP 3, 3/16 CORES+, GS 4+3 (5-90% CORE VOL), 80-90% GS 4, LEFT APEX/MID, TAKES STEFANO MICHELLE, HIGHEST PRE-TX PSA 13,(07/29), +ED, + TOBACCO ABUSE, 8X6 CM RT ING HERNIA WITH BOWEL LOOP IN TREATMENT FIELD WHEN IN STANDING POSITION, AUA 21/35, 40GM PROSTATE ON JODIE, ASYMPTOMATIC, DECIPHER GENOMIC SCORE 0.81 (HIGH RISK), PENDING SURGICAL CORRECTION OF RT ING HERNIA BEFORE DEFINITIVE PROSTATE RADIATION THERAPY, PRIOT RT TONSIL XRT LD 02/16/2023. STAGE: IIC- T2N0M0 GROUP 3 ICD-10: C61 Radiotherapy to Date: Course: Head Neck 2022, Treatment Site: [id number], Ref. ID: [id number], Energy: 6X, Dose/Fx (cGy): 200, #Fx: 30 / 30, Dose Correction (cGy): 0, Total Dose Delivered (cGy): 6,000, Start Date: 01/01/2023, End Date: 02/16/2023, Elapsed Days: 46 Current History: This is a pleasant 69-year-old male with a recent diagnosis of unfavorable intermediate risk prostate of Dudley 4+3. Decipher genomic score of 0.81 High Risk. PSA TABLE: 02/27 9.4 07/29 13 07/30 12.6 01/30 11.8 ALL of these numbers have been corrected on finasteride MRI PROSTATE on 04/01/2024 in [place] showed a prostate volume of 33 cc, 1.5 cm left peripheral zone of the apex and a 1 cm left transitional zone mid gland lesion. There was a large right inguinal hernia with bowel loops present. BX on 05/06/2024 showed left lateral apex Monico 4+3 (30%) 1/1 cores, grade 480%, left lateral mid gland GS 4+3 (5%) 1/1 cores and left apex peripheral GS 4+3 involving 1 out of 2 cores 90% with grade 490% Bone scan on 06/08/2024 showed no metastatic disease Patient had Barrigel and fiducials implanted on 06/28/2024. Quick CT of the treatment area shows bowel contents within treatment field, thus requiring surgical correction prior to definitive XRT being started. Patient is a 1.5 pack/day smoking history x 55 years. 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 Family HX- Brother had prostate cancer in his living, father passing from lung cancer, maternal grandmother dying of ovarian cancer and maternal cousins dying of ovarian cancer.. Patient has prior history of Right Tonsillar SCC treated with combined chemoradiation with LD B in 02/16/2023. PET/CT on 10/27/2023 showed right tonsillar CA -complete response and no evidence of metastatic disease. Current Medications: DilTIAZem HCl ER, finasteride, tamsulosin HCl. Allergies: codeine Allergy UNKNOWN hydrocodone Allergy UNKNOWN metronidazole [From Flagyl] Allergy UNKNOWN naproxen [From Naprosyn] Allergy (Verified 07/23/22 09:21) UNKNOWN Current Complaints / Review of Systems: ABOVE Vital Signs: Performed on 07/06/2024 8:48 AM BMI - 20.101 kg/m2, Height - 68 in, Weight - 132.2 lbs, Temperature - 96.9 f, Pulse - 73 /min, Respiration - 18 /min, O2 Sat - 99 %, Pain - 0, Fatigue - 0 and BP - 125/ 69 mm(hg). Physical Exam: General: Alert and oriented x 3. No acute distress. HEENT: Normocephalic, atraumatic. Extraocular Movements Intact: Pupils Equal, Round, Reactive to Light and Accommodation: Sclerae anicteric. Oral cavity is clear without lesions, masses or ulcers. NECK: Supple without supraclavicular or jugular lymphadenopathy. LUNGS: Clear to auscultation bilaterally without rales, rhonchi or wheeze. HEART: Regular rate and rhythm, normal S1 and S2 without murmur, gallop or rub. MUSCULOSKELETAL: No tenderness or percussion pain over the axial skeleton, scapulae or pelvis. ABDOMEN: Soft, nontender, nondistended without masses or organomegaly. Bowell sounds are present. RT ING HERNIA 8 X6 CM IN STANDING POSITION EXTREMITIES: No peripheral edema is identified. Limited motor and sensory examination are grossly intact and symmetric bilaterally. NEUROLOGIC: Cranial nerves II ???XII are grossly intact. Normal sensation, strength 5/5 in all extremities, normal gait, no ataxia. /GI-normal circumcised male external genitalia. Large right inguinal hernia as noted above. Rectal exam shows a soft approximately 40 g prostate with no apparent nodularity. Sphincter tone adequate. No blood per exam glove. Performance Status: KPS 90 Lab: None Pathology: As above Imaging: See HPI Impression: LEFT SIDED PROSTATE CANCER, GROUP 3, 3/16 CORES+, GS 4+3 (5-90% CORE VOL), 80-90% GS 4, LEFT APEX/MID, TAKES SAW LANETTE EDMONDARIEMANUEL, HIGHEST PRE-TX PSA 13,(07/29), +ED, + TOBACCO ABUSE, 8X6 CM RT ING HERNIA WITH BOWEL LOOP IN TREATMENT FIELD WHEN IN STANDING POSITION, AUA 21/35, 40GM PROSTATE ON JODIE, ASYMPTOMATIC, DECIPHER GENOMIC SCORE 0.81 (HIGH RISK), PENDING SURGICAL CORRECTION OF RT ING HERNIA BEFORE DEFINITIVE PROSTATE RADIATION THERAPY, PRIOT RT TONSIL XRT LD 02/16/2023. STAGE: IIC- T2N0M0 GROUP 3 ICD-10: C61 PLAN: Options regarding treatment of this prostate cancer were discussed in detail with the patient and . Patient wishes to proceed with definitive XRT. Patient received Barrigel and fiducial insertions on 06/28/2024 Patient will need right inguinal hernia repair as the bowel loops are within the treatment field and this is a dose-limiting organ so it must be corrected first. VAL surgical consult and correction by GENERAL SURGERY- MAIK PIÑA MD Plan IMRT based treatment to the prostate and seminal vesicles as soon as surgical correction of the Right Inguinal Hernia. Plan doses approximately 7000 cGy in [address] MAIK PIÑA MD???s nurse and she will call the patient today and have him seen tomorrow. Anticipated surgical date would be next July. CC: MAIK PIÑA MD Signed by: 07/06/2024 1:52:50 PM <<Signature on File>> Time spent with patient: 65 minutes CPT Code: CPT Code:
== END 2024-07-06 23:59 | disposition home or self-care (01) ==
PROVIDERS: Absent Provider Urology; PCP Nurse Practitioner; Visit Provider Radiology Radiation Oncology
DX: C61 Malignant neoplasm of prostate (principal); Z85.818 Personal history of malignant neoplasm of other sites of lip, oral cavity, and pharynx; F17.210 Nicotine dependence, cigarettes, uncomplicated; F10.21 Alcohol dependence, in remission; K40.90 Unilateral inguinal hernia, without obstruction or gangrene, not specified as recurrent; Z80.1 Family history of malignant neoplasm of trachea, bronchus and lung; Z80.41 Family history of malignant neoplasm of ovary
CPT/HCPCS: 78306; 99215; A9561

== ENCOUNTER 2024-07-07 09:20 | Outpatient (CLI) | payer MEDICARE, SELFPAY | END 2024-07-07 09:21 | disposition home or self-care (01) | LOC: RAD 07-08 09:24 | PROVIDERS: PCP Nurse Practitioner; Visit Provider Student in an Organized Health Care Education/Training Program | DX: K46.9 Unspecified abdominal hernia without obstruction or gangrene (principal) | CPT/HCPCS: 99204 ==

== ENCOUNTER 2024-07-11 08:46 | Oncology outpatient (recurring) (ONCR) | payer MEDICARE, SELFPAY | END 2024-08-06 23:59 | disposition home or self-care (01) | LOC: ONCMED 08:46 | PROVIDERS: Absent Provider Urology; PCP Nurse Practitioner; Visit Provider Radiology Radiation Oncology | DX: Z53.9 Procedure and treatment not carried out, unspecified reason (principal) | CPT/HCPCS: 99204; J1100; J1171; J2405; J2704; J3010; J3490; J9999 ==

== ENCOUNTER 2024-07-13 08:37 | Day surgery (SDC) | payer MEDICARE, SELFPAY ==
[2024-07-13] VITALS (12 sets, daily range): BP systolic 107–129; BP diastolic 58–79; PULSE 74–86; RESP 14–18; TEMP 36.2–36.3; O2SAT 92–98
--- NOTE | 2024-07-13 08:56 | W.PM.OPSUD ---
Surgery/Procedure H&P Update DATE OF PROCEDURE: July 13, 2024 DATE H&P PERFORMED: 07/07/24 H&P UPDATE INFORMATION: I have reviewed H&P completed within last 30 days, I have examined patient prior to procedure and No changes to prior documentation PLANNED PROCEDURE: Operation Date: 07/13/24 10:20 Proposed Procedures p Inguinal Hernia Repair Open Inguinal Hernia Repair w/ Mesh [id number], K46.9(Right) - Malik Bedoya MD
--- NOTE | 2024-07-13 09:01 | ECG_ITS ---
[facility]: 2024-07[facility]13 Pat Name: Jin Bateman Department: Room: Gender: Male Tour Leader: : 1955 Requested By: Derrell Gordon Order Number: [id number] Carley MD: Boubacar Zamora M.D. Measurements Intervals [place] Rate: 64 P: 90 DE: 192 QRS: 60 QRSD: 94 T: 61 QT: 413 QTc: 428 Interpretive Statements SINUS RHYTHM WITH OCCASIONAL SUPRAVENTRICULAR PREMATURE COMPLEXES Compared to ECG 07/12/2022 12:20:05 Sinus arrhythmia no longer present Electronically Signed On 07-13-2024 23:34:57 CDT by Boubacar Zamora M.D. [email or web address]
[2024-07-13] MEDS: sodium chloride 0.9% 1,000 ML 30 ML IV (09:06)
--- NOTE | 2024-07-13 09:28 | ANES.PREANE2 ---
Pre-Anesthetic Assessment Height/Weight: Height 5 ft 8 in Weight 132 lb Temp Pulse Resp BP Pulse Ox O2 Del Method 97.1 F L 74 18 127/72 96 Room Air 07/13/24 08:56 07/13/24 08:56 07/13/24 08:56 07/13/24 08:56 07/13/24 08:56 07/13/24 08:56 Preop Diagnosis: Inguinal hernia Operation Date: 07/13/24 10:20 Proposed Procedures p Inguinal Hernia Repair Open Inguinal Hernia Repair w/ Mesh 20226, K46.9(Right) - Malik Bedoya MD Was Beta Flaca taken within 24 hours: N/A Was Clonidine taken within 24 hours: N/A Last intake: Intake Last Liquid Date 07/12/24 Last Liquid Time 20:00 Last Solid Date 07/12/24 Last Solid Time 17:30 Social Tobacco and No alcohol Exam alert, oriented x 3, clear to auscultation bilaterally and regular rate & rhythm Airway Cervical ROM: within normal limits Mallampati: Class I Comments: Comments: Edentulous Anesthetic Plan ASA status: 3 Anesthesia: General and Regional (specify below) Other: No prior issues with anesthesia NPO since yesterday evening Patient had prior laryngeal cancer, s/p tonsillectomy with radical neck dissection. No home O2 COPD, chronic smoker Patient has a history of A-fib. On chronic diltiazem. Recent EKG today showing sinus rhythm with PVCs Patient states he can perform ADLs Plan for general anesthesia with possible postop nerve block Medications/Allergies Home Medications ?Medication ?Instructions ?Recorded ?Confirmed ?Last Taken ?Type cholecalciferol (vitamin D3) 50 50 mcg PO DAILY 07/19/19 07/12/24 07/12/24 History mcg (2,000 unit) capsule ascorbic acid (vitamin C) 500 mg 500 mg PO DAILY 07/12/22 07/12/24 07/12/24 History tablet (Vitamin C) tamsulosin 0.4 mg capsule 0.8 mg (2 x 0.4 mg) PO DAILY #180 08/05/22 07/12/24 07/12/24 Rx caps diltiazem HCl 30 mg tablet 30 mg PO DAILY 11/13/22 07/12/24 07/12/24 History (Cardizem) finasteride 5 mg tablet 5 mg PO DAILY enlarged prostate 10/01/23 07/12/24 07/12/24 Rx #30 tabs aspirin 81 mg capsule 81 mg PO DAILY 07/07/24 07/12/24 07/11/24 History Allergies Allergy/AdvReac Type Severity Reaction Status Date / Time codeine Allergy ALGY-Rash Verified 07/12/24 14:26 hydrocodone Allergy ALGY-Rash Verified 07/12/24 14:26 metronidazole (From Flagyl) Allergy ALGY-Rash Verified 07/12/24 14:26 naproxen (From Naprosyn) Allergy ALGY-Rash Verified 07/12/24 14:26 Current Medications Generic Name Dose Route Start Last Admin Trade Name Freq PRN Reason Stop Dose Admin Sodium Chloride 1,000 mls @ 30 mls/hr 07/13/24 09:00 07/13/24 09:06 Sodium Chloride 0.9% IV 07/14/24 08:59 30 mls/hr .Q24H VIBHA Administration PFSH Anesthesia Medical History Leukocytosis Aspiration pneumonia Neoplasm of tonsil History of basal cell carcinoma of skin Degenerative spinal arthritis Mixed hyperlipidemia Vitamin D deficiency Peyronie's disease Erectile dysfunction BPH with obstruction/lower urinary tract symptoms Elevated PSA Surgical History Hx of tonsillectomy (07/10/22) Right tonsillectomy with right cervical lymphadenectomy H/O radical excision of skin lesion FACE Hx of circumcision Family History Father , AT AGE 77 Cancer LUNG Mother CAD (coronary artery disease) Social History Smoking and tobacco/nicotine status: never used tobacco/nicotine Alcohol intake: never Substance/Drug Use: unknown Marital status: Current occupational status: retired
[2024-07-13] MEDS: ceFAZolin 2,000 mg SDV 2000 MG IVP (09:32)
[2024-07-13] MEDS: lidocaine-epi 1% 20 mL INJ 5 ML INJECTION (10:20)
[2024-07-13] MEDS: BUPivacaine 0.25% INJ 10 mL 5 ML INJECTION (10:20)
--- NOTE | 2024-07-13 10:37 | PM.OP ---
Operative Report Date of procedure: July 13, 2024 Pre-op diagnosis: Right inguinal hernia Post-op diagnosis: same Post-op findings: Direct right inguinal hernia Procedure done: Open right inguinal hernia repair with mesh Implants: Plug and patch size large Specimens removed/disposition: None Pathology: none sent Surgeon: Malik Bedoya MD Anesthesia: General Estimated blood loss (mL): 10 Complications: N/A Findings: Large direct inguinal hernia Condition: stable Disposition: same day Brief History: 69-year-old male who presented with a right inguinal hernia. Patient needed this repair in order to get radiation for prostate cancer. Discussed risk and benefits and patient agreed to proceed with right open inguinal hernia repair with mesh. Procedure: Patient brought to the OR and placed supine on the table. SCDs were placed and functioning. Preoperative ancef was administered. General anesthesia was induced. A white catheter was placed without any complications. The right groin was prepped and draped in the usual sterile fashion. Local infiltration at the surgical site was done using lidocaine/bupivacaine with epinephrine. A 5cm incision was carried out over the right inguinal canal. Tissue dissection was carried down to the external oblique fascia using electrocautery. The fascia was incised and the cord structures were identified. Cord structures were dissected of the hernia sac. I identified a large direct inguinal hernia. The hernia sac was dissected and reduced into the abdomen. The posterior wall of the inguinal canal was repaired using a mesh plug and patch. The plug was fixed using 2-0 ethibond to the cojoint ligament and inguinal ligament with interrupted sutures. The mesh patch was sutured to the cojoint tendon and the inguinal ligament using interrupted sutures with 2-0 ethibond. The external oblique fascia was closed using 3-0 vicryl. Skin was closed using 4-0 monocryl and surgical glue. White was removed. The patient woke up from anesthesia and was transferred to PACU without any complications.
--- NOTE | 2024-07-13 12:10 | ANE.PACU2 ---
Inpatient post-anesthesia follow up: Airway intact: Yes Vital signs: Temperature 97.3 F Pulse Rate 80 Respiratory Rate 18 Blood Pressure 124/73 Pulse Oximetry 93 Oxygen Delivery Me thod Room Air Oxygen Flow Rate Fraction of Inspir ed Oxygen Hydration adequate: Yes Nausea and vomiting: No Pain level: 1 Mental status: Baseline
== END 2024-07-13 12:10 | disposition home or self-care (01) ==
PROVIDERS: PCP Nurse Practitioner; Visit Provider Student in an Organized Health Care Education/Training Program
PROC: (CPT 49505; principal; 2024-07-13 10:20)
DX: K40.90 Unilateral inguinal hernia, without obstruction or gangrene, not specified as recurrent (principal); C61 Malignant neoplasm of prostate; E78.2 Mixed hyperlipidemia; I48.91 Unspecified atrial fibrillation; J44.9 Chronic obstructive pulmonary disease, unspecified; Z79.899 Other long term (current) drug therapy; Z79.82 Long term (current) use of aspirin; Z88.5 Allergy status to narcotic agent; Z88.8 Allergy status to other drugs, medicaments and biological substances; Z85.21 Personal history of malignant neoplasm of larynx
CPT/HCPCS: 49505; 51702; 93005; C1781; J0690; J3490; J7030; J9999

== ENCOUNTER → 2024-07-28 09:38 | Outpatient (BNVA) | payer MEDICARE, SELFPAY | PROVIDERS: PCP Nurse Practitioner; Visit Provider Student in an Organized Health Care Education/Training Program | DX: Z98.890 Other specified postprocedural states (principal); Z87.19 Personal history of other diseases of the digestive system | CPT/HCPCS: 99024 ==

== ENCOUNTER 2024-08-30 14:44 | Oncology outpatient (recurring) (ONCR) | payer MEDICARE, SELFPAY ==
--- NOTE | 2024-08-16 09:45 | ONCRAD TMN_ITS ---
Radiation Oncology Weekly Treatment Management Patient: Fransico Abdi> MR#: [id number] : 1955> Attending Physician: Dr. Hira Daniel Date of Service: 08/16/2024 Referring Physician(s) : Diagnosis: St IIc adenocarcinoma of prostate/ PSA 13 G.S 4 + 3. Radiotherapy to date: Course: Prostate 2024, Treatment Site: Prostate 70Gy, Ref. ID: [id number], Energy: 6X, Dose/Fx (cGy): 250, #Fx: , Dose Correction (cGy): 0, Total, Dose Delivered (cGy): 500, Start Date: 08/15/2024, Elapsed Days: 1 Reason for visit: The patient is being seen today as part of their regularly scheduled weekly on treatment visits to assess for acute toxicities from radiotherapy. Review of Systems: Just began treatment. Stable 1 x nocturia. Slow flow. On tamsulosin 1 a day. After dx of A fib he was reduced from 2 to 1 a day. Still smoking 1 ppd. Disabled due to back issues but retains some activity at home. Vital Signs: Performed on 08/16/2024 9:08 AM BMI - 20.04 kg/m2, Height - 68 in, Weight - 131.8 lbs, Temperature - 96.8 f, Pulse - 72 /min, Respiration - 17 /min, O2 Sat - 100 %, Pain - 0, Fatigue - 0 and BP - 130/ 83 mm(hg). Physical Exam: omitted Imaging: Radiation therapy imaging related to accurate target localization (i.e. KV, MV and CBCT) was reviewed. Appropriate changes, if any, were made to ensure treatment accuracy. Plan: good tolerance of treatment. Begged him to quit smoking. Signed by: Dr. Hira Daniel 08/16/2024 9:44:45 AM
--- NOTE | 2024-08-23 15:45 | ONCRAD TMN_ITS ---
Radiation Oncology Weekly Treatment Management Patient: Fransico Abdi> MR#: [id number] : 1955> Attending Physician: Dr. Hira Daniel Date of Service: 08/23/2024 Referring Physician(s) : Diagnosis: Radiotherapy to date: Course: Prostate 2024, Treatment Site: Prostate 70Gy, Ref. ID: [id number], Energy: 6X, Dose/Fx (cGy): 250, #Fx: , Dose Correction (cGy): 0, Total Dose Delivered (cGy): 1,750, Start Date: 08/15/2024, Elapsed Days: 8 Reason for visit: The patient is being seen today as part of their regularly scheduled weekly on treatment visits to assess for acute toxicities from radiotherapy. Review of Systems: No complaints. One episode of loose stools. Urination slow. Was on tamsulosin BID but other physician reduced dose to once a day. Still smoking maybe a bit less. Vital Signs: Performed on 08/23/2024 3:11 PM BMI - 20.284 kg/m2, Height - 68 in, Weight - 133.4 lbs, Temperature - 97.4 f, Pulse - 72 /min, Respiration - 17 /min, O2 Sat - 98 %, Pain - 0, Fatigue - 0 and BP - 124/ 80 mm(hg). Physical Exam: omitted Imaging: Radiation therapy imaging related to accurate target localization (i.e. KV, MV and CBCT) was reviewed. Appropriate changes, if any, were made to ensure treatment accuracy. Plan: Good tolerance of treatment. Continue as planned. Signed by: Dr. Hira Daniel 08/23/2024 3:44:41 PM
== END 2024-08-30 23:59 | disposition home or self-care (01) ==
PROVIDERS: Absent Provider Urology; PCP Nurse Practitioner; Visit Provider Radiology Radiation Oncology
DX: Z51.0 Encounter for antineoplastic radiation therapy (principal); C61 Malignant neoplasm of prostate
CPT/HCPCS: 77300; 77301; 77334; 77336; 77338; 77385; 77386; 99024

== ENCOUNTER 2024-09-05 14:46 | Oncology outpatient (recurring) (ONCR) | payer MEDICARE, SELFPAY | END 2024-09-05 23:59 | disposition home or self-care (01) | PROVIDERS: Absent Provider Urology; PCP Nurse Practitioner; Visit Provider Radiology Radiation Oncology | DX: Z51.0 Encounter for antineoplastic radiation therapy (principal); C61 Malignant neoplasm of prostate | CPT/HCPCS: 77336; 77385 ==

== ENCOUNTER 2024-09-27 15:30 | Oncology outpatient (recurring) (ONCR) | payer MEDICARE, SELFPAY ==
--- NOTE | 2024-09-06 15:51 | ONCRAD TMN_ITS ---
Radiation Oncology Weekly Treatment Management Patient: Fransico Abdi> MR#: [id number] : 1955> Attending Physician: Austin Erazo Date of Service: 09/06/2024 Referring Physician(s) : Diagnosis: Radiotherapy to date: Course: Prostate 2024, Treatment Site: Prostate 70Gy, Ref. ID: [id number], Energy: 6X, Dose/Fx (cGy): 250, #Fx: , Dose Correction (cGy): 0, Total Dose Delivered (cGy): 3,500, Start Date: 08/15/2024, Elapsed Days: 22 Reason for visit: The patient is being seen today as part of their regularly scheduled weekly on treatment visits to assess for acute toxicities from radiotherapy. Review of Systems: Returned home from wedding in [place]. No voice complaints other than some mild obstructive symptoms. He is increased his Flomax to 2 tablets starting yesterday and noted results. Vital Signs: Performed on 09/06/2024 3:07 PM BMI - 19.645 kg/m2, Height - 68 in, Weight - 129.2 lbs, Temperature - 97.4 f, Pulse - 71 /min, Respiration - 18 /min, O2 Sat - 97 %, Pain - 0, Fatigue - 0 and BP - 119/ 73 mm(hg). Physical Exam: AAOX3. Skin intact. Imaging: Radiation therapy imaging related to accurate target localization (i.e. KV, MV and CBCT) was reviewed. Appropriate changes, if any, were made to ensure treatment accuracy. Plan: Continue XRT Continue 2 doses of Flomax in the evening Signed by: Austin Erazo 09/06/2024 3:49:06 PM
--- NOTE | 2024-09-13 15:42 | ONCRAD TMN_ITS ---
Radiation Oncology Weekly Treatment Management Patient: Jin Bateman MR#: [id number] : 1955 Attending Physician: Dr. Hira Daniel Date of Service: 09/13/2024 Referring Physician(s) : Diagnosis: Radiotherapy to date: Course: Prostate 2024, Treatment Site: Prostate 70Gy, Ref. ID: [id number], Energy: 6X, Dose/Fx (cGy): 250, #Fx: , Dose Correction (cGy): 0, Total Dose Delivered (cGy): 4,500, Start Date: 08/15/2024, Elapsed Days: 29 Reason for visit: The patient is being seen today as part of their regularly scheduled weekly on treatment visits to assess for acute toxicities from radiotherapy. Review of Systems: On Tamsulosin BID. Despite this urinary stream continues to slow with increased nocturia to 2 to 3 x at night. Minimal urinary burning pain. Bowels regular with stool softener. Still smoking < 1 ppd. No other medical support desired. Vital Signs: Performed on 09/13/2024 3:18 PM BMI - 19.706 kg/m2, Height - 68 in, Weight - 129.6 lbs, Temperature - 97.1 f, Pulse - 74 /min, Respiration - 17 /min, O2 Sat - 97 %, Pain - 0, Fatigue - 0 and BP - 108/ 66 mm(hg). Physical Exam: omittted Imaging: Radiation therapy imaging related to accurate target localization (i.e. KV, MV and CBCT) was reviewed. Appropriate changes, if any, were made to ensure treatment accuracy. Plan: Good tolerance of treatment. Discussed critical need to quit smoking, continue treatment as planned. Signed by: Dr. Hira Daniel 09/13/2024 3:40:33 PM
--- NOTE | 2024-09-20 16:16 | ONCRAD TMN_ITS ---
Radiation Oncology Weekly Treatment Management Patient: Jin Bateman MR#: [id number] : 1955 Attending Physician: Dr. Hira Daniel Date of Service: 09/20/2024 Referring Physician(s) : Diagnosis: Prostate Cancer C61.0 Radiotherapy to date: Course: Prostate 2024, Treatment Site: Prostate 70Gy, Ref. ID: [id number], Energy: 6X, Dose/Fx (cGy): 250, #Fx: , Dose Correction (cGy): 0, Total Dose Delivered (cGy): 5,750, Start Date: 08/15/2024, Elapsed Days: 36 Reason for visit: The patient is being seen today as part of their regularly scheduled weekly on treatment visits to assess for acute toxicities from radiotherapy. Review of Systems: Steady increase in fatigue. A bit of pink blood on toilet tissue. No anal pain or diarrhea. On tamsulosin bid and notes now that BP has declined here to 95/59. Weak flow. Ongoing frequency and nocturia. Vital Signs: Performed on 09/20/2024 3:21 PM BMI - 19.615 kg/m2, Height - 68 in, Weight - 129 lbs, Temperature - 96.9 f, Pulse - 60 /min, Respiration - 16 /min, O2 Sat - 96 %, Pain - 0, Fatigue - 0 and BP - 95/ 59 mm(hg)(/low). Physical Exam: omitted. Imaging: Radiation therapy imaging related to accurate target localization (i.e. KV, MV and CBCT) was reviewed. Appropriate changes, if any, were made to ensure treatment accuracy. Plan: Good tolerance of treatment. Will add trial of oxybutynin 5 mg q PM for nocturia. Signed by: Dr. Hira Daniel 09/20/2024 4:15:11 PM
--- NOTE | 2024-09-27 15:29 | N.ONRD TS_ITS ---
Radiation Oncology Treatment Summary/Weekly Treatment Management Patient: Fransico Abdi> MR#: [id number] : 1955> Attending Physician: Austin Erazo Date of Service: 09/27/2024 Referring Physician(s) : Diagnosis: Radiotherapy to date: Course: Prostate 2024, Treatment Site: Prostate 70Gy, Ref. ID: [id number], Energy: 6X, Dose/Fx (cGy): 250, #Fx: 28 / 28, Dose Correction (cGy): 0, Total Dose Delivered (cGy): 7,000, Start Date: 08/15/2024, End Date: 09/27/2024, Elapsed Days: 43 Reason for visit: The patient is being seen today as part of their regularly scheduled weekly on treatment visits to assess for acute toxicities from radiotherapy. Review of Systems: Completed treatments today. He complains of some mild constipation. He also has significant fatigue so we will get a CBC/CMP/magnesium Vital Signs: Performed on 09/27/2024 2:54 PM BMI - 19.554 kg/m2, Height - 68 in, Weight - 128.6 lbs, Temperature - 97.2 f, Pulse - 76 /min, Respiration - 18 /min, O2 Sat - 96 %, Pain - 4, Fatigue - 4 and BP - 104/ 67 mm(hg). Physical Exam: AAOx3. Skin intact Imaging: Radiation therapy imaging related to accurate target localization (i.e. KV, MV and CBCT) was reviewed. Appropriate changes, if any, were made to ensure treatment accuracy. Plan: CK CBC/CMP/MG++ TODAY Completed XRT today RTC 10/27 @ 1400 Urology Nov 24 Signed by: Austin Erazo 09/27/2024 3:27:51 PM
[2024-09-27 15:54] LABS: Hematocrit 40.3 % (37-53); Hemoglobin 13.80 g/dL (11.27-16.99); Mean Corpuscular HGB Conc 34.2 g/dL (30-55); Mean Corpuscular Hemoglobin 29.6 pg (27-33); Mean Corpuscular Volume 86.3 fl (82-101); Nucleated Red Blood Cells % 0 %; Platelet Count 194 10^3/cmm (157-399); Red Blood Count 4.67 10^6/uL (3.85-5.65); White Blood Count 6.46 10^3/uL (3.29-11.43)
[2024-09-27 16:11] LABS: Alanine Aminotransferase 10 U/L (0-41); Albumin Level 4.3 g/dL (3.5-5.2); Alkaline Phosphatase 107 U/L (40-130); Anion Gap 15.0 (5-19); Aspartate Amino Transferase 17 U/L (0-40); Blood Urea Nitrogen 12 mg/dL (8-23); Calcium 9.7 mg/dL (8.5-10.5); Carbon Dioxide 28 mmol/L (22-29); Chloride 99 mmol/L (98-107); Globulin 3.1 g/dL (1.3-4.6); Glucose 115 mg/dL (65-115); Magnesium 2.4 mg/dL (1.7-2.3); Osmolality Calculated 287 mOsm/kg (285-295); Potassium 4.0 mmol/L (3.5-5.1); Sodium 138 mmol/L (136-145); Total Protein 7.4 g/dL (6.6-8.7)
== END 2024-09-27 23:59 | disposition home or self-care (01) ==
PROVIDERS: Absent Provider Urology; PCP Nurse Practitioner; Visit Provider Radiology Radiation Oncology
DX: Z53.9 Procedure and treatment not carried out, unspecified reason; Z51.0 Encounter for antineoplastic radiation therapy; C61 Malignant neoplasm of prostate; K59.00 Constipation, unspecified; R53.83 Other fatigue
CPT/HCPCS: 36415; 77336; 77385; 77386; 80053; 83735; 85025; 99024

== ENCOUNTER 2024-09-28 06:00 | Oncology outpatient (recurring) (ONCR) | payer MEDICARE, SELFPAY | END 2024-10-06 23:59 | disposition home or self-care (01) | LOC: ONCMED 10-03 09:08 | PROVIDERS: PCP Nurse Practitioner; Visit Provider Radiology Radiation Oncology | DX: Z51.0 Encounter for antineoplastic radiation therapy (principal); C61 Malignant neoplasm of prostate; R30.9 Painful micturition, unspecified; R39.12 Poor urinary stream; R35.1 Nocturia ==

== ENCOUNTER 2024-10-26 12:45 | Oncology outpatient (recurring) (ONCR) | payer MEDICARE, SELFPAY ==
--- NOTE | 2024-10-26 13:49 | ONCRAD EPV_ITS ---
Radiation Oncology Established Patient Visit Patient: Fransico Abdi [id number] : 1955> Age: 69> Sex: Male> Dictated by: Goran Erazo DO/JAD/LEIGH Date of Service: 10/26/2024 Referring Physician(s) : Chuy Merino MD- Urology General Surgery???MAIK PIÑA MD Diagnosis: LEFT SIDED PROSTATE CANCER, GROUP 3, 3/16 CORES+, GS 4+3 (5-90% CORE VOL), 80-90% GS 4, LEFT APEX/MID, TAKES STEFANO MICHELLE, HIGHEST PRE-TX PSA 13,(07/29), +ED, + TOBACCO ABUSE, 8X6 CM RT ING HERNIA WITH BOWEL LOOP IN TREATMENT FIELD WHEN IN STANDING POSITION, AUA 21/35, 40GM PROSTATE ON JODIE, ASYMPTOMATIC, DECIPHER GENOMIC SCORE 0.81 (HIGH RISK), PENDING SURGICAL CORRECTION OF RT ING HERNIA BEFORE DEFINITIVE PROSTATE RADIATION THERAPY, PRIOT RT TONSIL XRT LD 02/16/2023. STAGE: IIC- T2N0M0 GROUP 3 ICD-10: C61 Radiotherapy to Date: Course: Head Neck 2022, Treatment Site: [id number], Ref. ID: [id number], Energy: 6X, Dose/Fx (cGy): 200, #Fx: 30 / 30, Dose Correction (cGy): 0, Total Dose Delivered (cGy): 6,000, Start Date: 01/01/2023, End Date: 02/16/2023, Elapsed Days: 46 Course: Prostate 2024, Treatment Site: Prostate 70Gy, Ref. ID: [id number], Energy: 6X, Dose/Fx (cGy): 250, #Fx: 28 / 28, Dose Correction (cGy): 0, Total Dose Delivered (cGy): 7,000, Start Date: 08/15/2024, End Date: 09/27/2024, Elapsed Days: 43 Current History: This is a pleasant 69-year-old male who is 1 month from 7000 cGy in 28 fractions to the prostate and lymph nodes. He has mild urgency but it has improved since completion treatment. Patient has a cardiology appointment on and urology appointment on 11/24/2024. Current Medications: DilTIAZem HCl ER, finasteride, tamsulosin HCl. Allergies: codeine Allergy UNKNOWN hydrocodone Allergy UNKNOWN metronidazole [From Flagyl] Allergy UNKNOWN naproxen [From Naprosyn] Allergy (Verified 07/23/22 09:21) UNKNOWN Current Complaints / Review of Systems: . Vital Signs: Performed on 10/26/2024 12:55 PM BMI - 19.615 kg/m2, Height - 68 in, Weight - 129 lbs, Temperature - 97 f, Pulse - 139 /min (high), Respiration - 17 /min, O2 Sat - 96 %, Pain - 0, Fatigue - 0 and BP - 110/ 63 mm(hg)(/low). Physical Exam: General: Alert and oriented x 3. No acute distress. HEENT: Normocephalic, atraumatic. Extraocular Movements Intact: Pupils Equal, Round, Reactive to Light and Accommodation: Sclerae anicteric. Oral cavity is clear without lesions, masses or ulcers. NECK: Supple without supraclavicular or jugular lymphadenopathy. LUNGS: Clear to auscultation bilaterally without rales, rhonchi or wheeze. HEART: Regular rate and rhythm, normal S1 and S2 without murmur, gallop or rub. MUSCULOSKELETAL: No tenderness or percussion pain over the axial skeleton, scapulae or pelvis. ABDOMEN: Soft, nontender, nondistended without masses or organomegaly. Bowell sounds are present. EXTREMITIES: No peripheral edema is identified. Limited motor and sensory examination are grossly intact and symmetric bilaterally. NEUROLOGIC: Cranial nerves II ???XII are grossly intact. Normal sensation, strength 5/5 in all extremities, normal gait, no ataxia. Performance Status: KPS 90 Lab: None pending. Pathology: Imaging: See HPI Impression: : LEFT SIDED PROSTATE CANCER, GROUP 3, 3/16 CORES+, GS 4+3 (5-90% CORE VOL), 80-90% GS 4, LEFT APEX/MID, TAKES STEFANO MICHELLE, HIGHEST PRE-TX PSA 13,(07/29), +ED, + TOBACCO ABUSE, 8X6 CM RT ING HERNIA WITH BOWEL LOOP IN TREATMENT FIELD WHEN IN STANDING POSITION, AUA 21/35, 40GM PROSTATE ON JODIE, ASYMPTOMATIC, DECIPHER GENOMIC SCORE 0.81 (HIGH RISK), PENDING SURGICAL CORRECTION OF RT ING HERNIA BEFORE DEFINITIVE PROSTATE RADIATION THERAPY, PRIOT RT TONSIL XRT LD 02/16/2023. STAGE: IIC- T2N0M0 GROUP 3 ICD-10: C61 PLAN: Cardiology appointment 11/23/2024 Urology appointment 11/24/2024 RTC 3 months or sooner if need be. Signed by: 10/26/2024 1:48:38 PM <<Signature on File>> Time spent with patient: CPT Code: CPT Code:
== END 2024-11-06 23:59 | disposition home or self-care (01) ==
PROVIDERS: PCP Nurse Practitioner; Visit Provider Radiology Radiation Oncology
DX: C61 Malignant neoplasm of prostate (principal); F17.200 Nicotine dependence, unspecified, uncomplicated; K46.9 Unspecified abdominal hernia without obstruction or gangrene; R39.15 Urgency of urination
CPT/HCPCS: 99024

== ENCOUNTER → 2024-11-16 08:30 | Outpatient (BNVA) | payer MEDICARE, SELFPAY | PROVIDERS: PCP Nurse Practitioner; Visit Provider Nurse Practitioner | DX: R97.20 Elevated prostate specific antigen [PSA] (principal); C61 Malignant neoplasm of prostate | CPT/HCPCS: 84153 ==

== ENCOUNTER 2025-01-26 13:56 | Oncology outpatient (recurring) (ONCR) | payer MEDICARE, SELFPAY ==
--- NOTE | 2025-01-26 14:35 | ONCRAD EPV_ITS ---
Radiation Oncology Established Patient Visit Patient: Jin Bateman [id number] : 1955 Age: 69 Sex: Male Dictated by: Austin Erazo Date of Service: 01/26/2025 Referring Physician(s) : Dr Chuy Merino Diagnosis: LEFT SIDED PROSTATE CANCER, GROUP 3, 3/16 CORES+, GS 4+3 (5-90% CORE VOL), 80-90% GS 4, LEFT APEX/MID, TAKES SAW PALMETTO,FINESTARIDE, HIGHEST PRE-TX PSA 13,(07/29), +ED, + TOBACCO ABUSE, 8X6 CM RT ING HERNIA WITH BOWEL LOOP IN TREATMENT FIELD WHEN IN STANDING POSITION, AUA 21/, 40GM PROSTATE ON JODIE, ASYMPTOMATIC, DECIPHER GENOMIC SCORE 0.81 (HIGH RISK), PENDING SURGICAL CORRECTION OF RT ING HERNIA BEFORE DEFINITIVE PROSTATE RADIATION THERAPY, PRIOT RT TONSIL XRT LD 02/16/2023. STAGE: IIC- T2N0M0 GROUP 3 ICD-10: C61 Radiotherapy to Date: Course: Head Neck 2022, Treatment Site: [id number], Ref. ID: [id number], Energy: 6X, Dose/Fx (cGy): 200, #Fx: 30 / 30, Dose Correction (cGy): 0, Total Dose Delivered (cGy): 6,000, Start Date: 01/01/2023, End Date: 02/16/2023, Elapsed Days: 46 Course: Prostate 2024, Treatment Site: Prostate 70Gy, Ref. ID: [id number], Energy: 6X, Dose/Fx (cGy): 250, #Fx: , Dose Correction (cGy): 0, Total Dose Delivered (cGy): 7,000, Start Date: 08/15/2024, End Date: 09/27/2024, Elapsed Days: 43 Current History: This is a 69-year-old male now 4 months since definitive XRT to an intact prostate. He received 7000 cGy in 28 fractions. PSA TABLE: 02/27 9.4 07/29 13 07/30 12.6 01/30 11.8 ALL of these numbers have been corrected on finasteride 11/18/24 0.052 (first PSA since XRT) Current Medications: diltiazem HCl (Cardizem) 30 mg PO DAILY finasteride 5 mg PO DAILY MDD 5 mg tamsulosin 0.4 mg PO DAILY orgovyx 120 mg PO DAILY Allergies: Codeine Hydrocodone Naproxen Current Complaints / Review of Systems: . Vital Signs: Performed on 01/26/2025 1:52 PM BMI - 20.192 kg/m2, Height - 68 in, Weight - 132.8 lbs, Temperature - 97 f, Pulse - 65 /min, Respiration - 17 /min, O2 Sat - 98 %, Pain - 0, Fatigue - 0 and BP - 118/ 80 mm(hg). Physical Exam: General: Alert and oriented x 3. No acute distress. HEENT: Normocephalic, atraumatic. Extraocular Movements Intact: Pupils Equal, Round, Reactive to Light and Accommodation: Sclerae anicteric. Oral cavity is clear without lesions, masses or ulcers. NECK: Supple without supraclavicular or jugular lymphadenopathy. LUNGS: Clear to auscultation bilaterally without rales, rhonchi or wheeze. HEART: Regular rate and rhythm, normal S1 and S2 without murmur, gallop or rub. MUSCULOSKELETAL: No tenderness or percussion pain over the axial skeleton, scapulae or pelvis. ABDOMEN: Soft, nontender, nondistended without masses or organomegaly. Bowell sounds are present. EXTREMITIES: No peripheral edema is identified. Limited motor and sensory examination are grossly intact and symmetric bilaterally. NEUROLOGIC: Cranial nerves II ???XII are grossly intact. Normal sensation, strength 5/5 in all extremities, normal gait, no ataxia. Performance Status: KPS 90 Lab: As above Pathology: Primary, c61 - malignant neoplasm of prostate, Diagnosed 10/26/2024 (active) . Imaging: See HPI Impression: Intermediate risk prostate cancer PLAN: Urology appointment on 02/23/2025 RTC in 3 months on 04/27/2025 or sooner if need be with PSA prior to that Signed by: 01/26/2025 2:34:49 PM <<Signature on File>> Time spent with patient//records/prep of doc: 30 CPT Code: CPT Code:
== END 2025-02-05 23:59 | disposition home or self-care (01) ==
PROVIDERS: PCP Nurse Practitioner; Visit Provider Radiology Radiation Oncology
DX: C61 Malignant neoplasm of prostate (principal); Z92.3 Personal history of irradiation
CPT/HCPCS: 99214

== ENCOUNTER → 2025-02-13 10:09 | Outpatient (BNVA) | payer MEDICARE, SELFPAY | PROVIDERS: PCP Nurse Practitioner; Visit Provider Pathology Anatomic Pathology & Clinical Pathology | DX: C61 Malignant neoplasm of prostate (principal) | CPT/HCPCS: 84153 ==